=== PATIENT | female | born 1975 | race Caucasian/White ===

== ENCOUNTER 2019-01-27 14:11 | Outpatient (RCR) | payer MEDICARE, MEDICAID, SELFPAY | END 2019-02-08 00:01 | LOC: SPT 14:11 | PROVIDERS: Family Provider Nurse Practitioner Family; Visit Provider General Practice | DX: G89.4 Chronic pain syndrome (principal); R26.9 Unspecified abnormalities of gait and mobility; M51.36 Other intervertebral disc degeneration, lumbar region; Z72.0 Tobacco use; M79.7 Fibromyalgia; F31.9 Bipolar disorder, unspecified; F20.9 Schizophrenia, unspecified; Z79.891 Long term (current) use of opiate analgesic | CPT/HCPCS: 97110 ×2; 97162 ==

== ENCOUNTER 2019-02-09 06:00 | Outpatient (RCR) | payer MEDICARE, MEDICAID, SELFPAY | END 2019-03-11 23:59 | disposition home or self-care (01) | LOC: SPO 06:00 | PROVIDERS: Family Provider Nurse Practitioner Family; PCP Nurse Practitioner Family; Referring Provider General Practice; Visit Provider General Practice | DX: G89.4 Chronic pain syndrome (principal); R26.9 Unspecified abnormalities of gait and mobility; M51.36 Other intervertebral disc degeneration, lumbar region | CPT/HCPCS: 97110 ==

== ENCOUNTER 2019-03-14 06:00 | Outpatient (RCR) | payer MEDICARE, MEDICAID, SELFPAY | END 2019-04-09 23:59 | disposition home or self-care (01) | LOC: SPO 06:00 | PROVIDERS: Family Provider Nurse Practitioner Family; PCP Nurse Practitioner Family; Referring Provider General Practice; Visit Provider General Practice | DX: G89.4 Chronic pain syndrome (principal); R26.9 Unspecified abnormalities of gait and mobility; M51.36 Other intervertebral disc degeneration, lumbar region; M79.7 Fibromyalgia | CPT/HCPCS: 97110 ==

== ENCOUNTER 2019-04-13 14:12 | Outpatient (CLI) | payer MEDICARE, MEDICAID, SELFPAY ==
--- NOTE | 2019-04-13 14:20 | XR_ITS ---
WS: [id number] XR KUB [id number] REASON FOR EXAM: GENERALIZED ABDOMINAL PAIN FINDINGS: Nonspecific gas and fecal stasis throughout the colon are seen. No air-fluid levels to sugg est obstruction. There is no free air in the abdomen seen. The osseous structures are all normal. No definite stones are seen. XR/XR KUB [id number] IMPRESSION: Nonspecific gas and fecal stasis.
== END 2019-04-13 14:13 | disposition home or self-care (01) ==
LOC: RAD 14:18
PROVIDERS: Family Provider Nurse Practitioner Family; PCP Nurse Practitioner Family; Visit Provider Nurse Practitioner Family
DX: R10.84 Generalized abdominal pain (principal)
CPT/HCPCS: 74018

== ENCOUNTER → 2019-05-02 13:20 | Outpatient (BNVA) | payer MEDICARE, MEDICAID, SELFPAY | PROVIDERS: Family Provider Nurse Practitioner Family; PCP Nurse Practitioner Family; Visit Provider Specialist | DX: G43.909 Migraine, unspecified, not intractable, without status migrainosus (principal); F17.210 Nicotine dependence, cigarettes, uncomplicated | CPT/HCPCS: G0463 ==

== ENCOUNTER → 2019-06-29 14:40 | Outpatient (BNVA) | payer MEDICARE, MEDICAID, SELFPAY | PROVIDERS: Family Provider Nurse Practitioner Family; PCP Nurse Practitioner Family; Visit Provider Specialist | DX: G43.909 Migraine, unspecified, not intractable, without status migrainosus (principal); G47.00 Insomnia, unspecified; F17.210 Nicotine dependence, cigarettes, uncomplicated | CPT/HCPCS: 99213 ==

== ENCOUNTER 2019-09-07 12:35 | Outpatient (CLI) | payer MEDICARE, MEDICAID, SELFPAY ==
--- NOTE | 2019-09-07 12:41 | XR_ITS ---
WS: [id number] LUMBAR SPINE: 3 VIEWS TECHNIQUE: AP, lateral and L5-S1 spot. HISTORY: LOW BACK PAIN AT MULTIPLE SITES COMPARISON: None available. Lumbar vertebra are normally aligned. Mild facet joint sclerosis and narrowing at L4-5 and L5-S1. No fracture. No loss of disc space or vertebral body height. SI joints are symmetric bilaterally. No soft tissue abnormalities. XR/XR lumbar spine 2-3V* [id number] IMPRESSION: Mild facet joint arthritis at L4-5 and L5-S1.
--- NOTE | 2019-09-07 12:41 | XR_ITS ---
WS: [id number] CERVICAL SPINE 3 VIEWS HISTORY: NECK PAIN COMPARISON: 01/27/2009 There is an artifact projecting over the RIGHT lateral cervical spine on the AP views. Mild straightening of the normal cervical lordosis. No fractures or disc space narrowing. Lateral mas ses are aligned. The odontoid is intact. Disc spaces and vertebral body heights are well-maintained. Soft tissues are normal. XR/XR cervical spine 3V* [id number] IMPRESSION: Normal cervical spine.
--- NOTE | 2019-09-07 12:41 | XR_ITS ---
WS: [id number] PELVIS AND BILATERAL HIPS TECHNIQUE: AP pelvis and AP and lateral hips. HISTORY: PAIN IN HIP COMPARISON: None available. Pelvis: Bones of the pelvis are symmetric. No soft tissue or bone abnormality. Right hip: No fracture or dislocation. No significant degenerative change. No soft tissue abnormality . Left hip: No fracture or dislocation. No significant degenerative change. No soft tissue abnormality. XR/XR hip BI m 5V wo/w pel* [id number] IMPRESSION: Negative pelvis and bilateral hips.
== END 2019-09-07 12:36 | disposition home or self-care (01) ==
LOC: RAD 12:40
PROVIDERS: Family Provider Nurse Practitioner Family; PCP Nurse Practitioner Family; Visit Provider Nurse Practitioner Family
DX: M54.2 Cervicalgia (principal); M25.551 Pain in right hip; M54.5 Low back pain; M13.88 Other specified arthritis, other site
CPT/HCPCS: 72040; 72100; 73523

== ENCOUNTER → 2019-09-14 08:40 | Outpatient (BNVA) | payer MEDICARE, MEDICAID, SELFPAY | PROVIDERS: Family Provider Nurse Practitioner Family; PCP Nurse Practitioner Family; Referring Provider Nurse Practitioner Family; Visit Provider Specialist | DX: R20.0 Anesthesia of skin (principal); R20.2 Paresthesia of skin; M25.542 Pain in joints of left hand; M25.541 Pain in joints of right hand | CPT/HCPCS: 95910 ==

== ENCOUNTER 2019-09-16 16:02 | Emergency (ER) | payer MEDICARE, MEDICAID, SELFPAY ==
[2019-09-16 16:07] VITALS: BP 223/111; PULSE 117; RESP 17; TEMP 36.7; O2SAT 96; BMI 42.9
--- NOTE | 2019-09-16 16:41 | CTR_ITS ---
PROCEDURE INFORMATION: Exam: CT Abdomen And Pelvis With Contrast Exam date and time: 09/16/2019 4:49 PM Age: 43 years old Clinical indication: Abdominal pain; Generalized; Prior surgery; Surgery date: 6+ months; Surgery type: Hyst; Patient HX: L lower abd pain w nausea and diarrhea TECHNIQUE: Imaging protocol: Computed tomography of the abdomen and pelvis with intravenous contrast. Radiation optimization: All CT scans at this facility use at least one of these dose optimization techniques: automated exposure control; mA and/or kV adjustment per patient size (includes targeted exams where dose is matched to clinical indication); or iterative reconstruction. Contrast material: OMNI 300; Contrast volume: 95 ml; Contrast route: INTRAVENOUS (IV); COMPARISON: CT abdomen pelvis w con* [id number] 02/13/2015 10:43 PM RADIATION DOSE METRICS: Total DLP (mGy-cm): 1878.94 FINDINGS: Lungs: Limited assessment lung bases without visible evidence of active cardiopulmonary process. Liver: Unremarkable. No mass. Gallbladder and bile ducts: Normal. No calcified stones. No ductal dilation. Pancreas: Normal. No ductal dilation. Spleen: Rare splenic calcified granuloma. Spleen otherwise unremarkable. Adrenals: Normal. No mass. Kidneys and ureters: Normal. No hydronephrosis. Stomach and bowel: Nonobstructive bowel pattern. No visible diverticulosis coli or diverticulitis. No visible evidence of significant adynamic or reactive ileus. Appendix: The appendix is visualized appears noninflamed. Intraperitoneal space: No visible intraperitoneal ascites. Vasculature: Unremarkable. No abdominal aortic aneurysm. Lymph nodes: No visible active mesenteric or retroperitoneal lymphadenopathy. Bladder: Urinary bladder decompressed but appears grossly unremarkable. Reproductive: Status post hysterectomy. Bones/joints: No visible active osseous pathology. Soft tissues: Unremarkable. Other findings: Obesity. CT/CT abdomen pelvis w con* [id number] IMPRESSION: Currently no visible evidence of acute abdominal or pelvic pathologic process. Radiation Dose CTDIVOL = (mGy): DLP = 1878.94 (mGy-cm)
--- NOTE | 2019-09-16 16:42 | ED_ITS ---
Documented by User: Jhony Valero DO 09/16/19 18:13 HPI - Abdominal Pain General: Chief Complaint: Abdominal Pain Stated Complaint: abd pain Time Seen by Provider: 09/16/19 16:24 History of Present Illness: HPI narrative: 43-year-old female comes in complaining of abdominal pain diarrhea with nausea. She relates it to an episode where she got overheated a month ago states she never really recovered from that she is tried several [id number] medications Imodium and Pepto- Bismol has had no relief. She is not really had a fever at all she localizes the pain more left lower quadrant she did have a colonoscopy about 2 to 3 years ago was only told about some polyps she said there is no mention that she can recall diverticuli. Unfortunately was done at an outside facility so we do not have easy access to the report from that. She denies any bloody stools or prateek hematochezia she has not had any vomiting with this. She has not noticed any particular triggers or relieving factors. MD elicited complaint: abdominal pain Onset (ago): month(s) (1) Pain Consistency: intermittent Location: LLQ Severity: moderate Quality: cramping Radiation: none Migration to: no migration Exacerbating factors: nothing Relieving factors: nothing Context: history of similar episodes and other (Ongoing for months) Associated Symptoms: Reports change in stool character and GI cramping; Denies change in bowel habits, chills, fever(s), hematochezia, hematuria, hematemesis, fecal incontinence and syncope Review of Systems Const: Denies: fever(s), chills, body aches, fatigue, malaise or night sweats Eyes: Denies: change in vision or blurry vision ENMT: Denies: throat pain, oral sores, dental pain, nasal discharge or nasal congestion Card: Denies: chest pain, palpitations, irregular heart rhythm, edema, syncope, dyspnea on exertion, orthopnea or leg pain with exertion Resp: Denies: dyspnea, productive cough, non-productive cough or wheezing GI: Reports: GI cramping and change in stool character; Denies: hematemesis, fecal incontinence, change in bowel habits or hematochezia : Denies: hematuria Musc: Denies: neck pain, back pain, extremity pain, extremity swelling, joint pain or joint swelling Skin/Breast: Denies: rash, pruritus or erythema Neuro: Denies: headache(s), numbness in extremities, weakness in extremities, sensory changes, lack of coordination, difficulty walking, frequent falls, dizziness, vertigo or confusion Psych: Denies: anxiety, depression, loss of interest, visual hallucinations, auditory hallucinations, suicidal ideation or homicidal ideation Endo: Denies: polyuria, polydipsia, tired all the time or cold intolerance Soren/Lymph: Denies: easy bruising, easy bleeding, petechiae, enlarged lymph nodes or tender lymph nodes PFSH ED PFSH: Family History Sister Psychiatric illness Father Diabetes Psychiatric illness Mother Multiple sclerosis Other Heart disease Social History Smoking and tobacco status: current every day smoker History of recent travel: No Physical Exam Const: COMMON NORMALS: average body habitus, patient oriented x3 and alert GENERAL APPEARANCE: cooperative, comfortable, well kempt and well developed NUTRITIONAL APPEARANCE: obese ORIENTATION/CONSCIOUSNESS: Yes awake, Yes oriented to person and Yes oriented to place HENMT: COMMON NORMALS: normocephalic and atraumatic HEAD & SCALP: normocephalic and atraumatic Eye: COMMON NORMALS: Equal, round and reactive pupils present, EOMs intact bilaterally, conjunctivae normal and no scleral icterus CONJUNCTIVA: Yes conjunctivae normal PUPIL: Yes Equal, round and reactive pupils present Neck/C-Spine: COMMON NORMALS: full ROM, no lymphadenopathy, supple, no meningeal signs and Thyroid normal THYROID: Thyroid normal and asymmetrical Lymph: LYMPHATIC: no lymphadenopathy noted Resp: COMMON NORMALS: normal respiratory effort, No retractions, No use of accessory muscles and clear to auscultation bilaterally AUSCULTATION: clear to auscultation bilaterally Cardio: COMMON NORMALS: regular rate and regular rhythm RATE: regular rate RHYTHM: regular rhythm HEART SOUNDS: no murmurs GI: COMMON NORMALS: Normal to inspection, nondistended, normoactive bowel sounds present, Soft to palpation and No hepatosplenomegaly present PALPATION: Yes Soft to palpation and Yes No hepatosplenomegaly present : COMMON NORMALS: Yes no CVA tenderness BLADDER/KIDNEY EXAM: Yes no CVA tenderness Back/Pelvis: COMMON NORMALS: no CVA tenderness LUMBAR SPINE/LOWER BACK: Yes normal to inspection Extremity: COMMON NORMALS: no clubbing, cyanosis or edema, no calf tenderness and no pedal edema Neuro: COMMON NORMALS: patient oriented x3 SENSORIUM/ORIENTATION: Yes alert, Yes oriented to person and Yes oriented to place MENINGEAL SIGNS: Yes no meningeal signs Psych: APPEARANCE: Yes well kempt Skin: COMMON NORMALS: no rashes or lesions noted and turgor normal GENERAL SKIN EXAM: no rashes or lesions noted and turgor normal Course Vital Signs: Vital signs: Vital Signs Temperature 98.0 F 09/16/19 16:07 Pulse Rate 84 09/16/19 18:42 Respiratory Rate 21 H 09/16/19 18:42 Blood Pressure 191/118 09/16/19 18:42 Pulse Oximetry 99 09/16/19 18:42 MDM - Abdominal Pain MDM Narrative: Medical decision making narrative: Awaiting urine. Patient was given p.o. potassium signed out to Dr. Sales see his note for final diagnosis and disposition. Lab Data: Labs: Lab Results 09/16/19 09/16/19 09/16/19 Range/Units 16:36 16:36 17:42 WBC 11.0 H (4.0-10.0) 10^3/ uL RBC 4.84 (4.1-5.3) 10^6/u L Hgb 14.1 (11.5-15.3) g/dL Hct 42.7 (37.0-47.0) % MCV 88.2 (81-99) fL MCH 29.1 (28.0-34.0) pg MCHC 33.0 (30.0-36.0) g/dL RDW 13.2 (12.1-15.1) % Plt Count 270 (130-400) 10^3/c mm MPV 10.3 (7.4-10.4) fL Neut % (Auto) 76.3 % Lymph % (Auto) 17.5 % [place] % (Auto) 4.6 % Eos % (Auto) 0.9 % Baso % (Auto) 0.4 % Neut # (Auto) 8.43 H (1.8-7.7) 10^3/u L Lymph # (Auto) 1.9 (0.8-4.8) 10^3/u L [place] # (Auto) 0.5 (0.2-0.9) 10^3/u L Eos # (Auto) 0.1 (0.0-0.8) 10^3/u L Baso # (Auto) 0.0 (0.0-0.1) 10^3/u L Nucleated RBC % (a uto) 0 % Nucleated RBCs # 0.0 /100WBC Sodium 140 (136-145) mmol/L Potassium 2.8 L* (3.5-5.1) mmol/L Chloride 105 (98-107) mmol/L Carbon Dioxide 24 (22-29) mmol/L Anion Gap 13.8 (5-19) BUN 10 (6-20) mg/dL Creatinine 0.8 (0.5-0.9) mg/dL GFR Calculation 79.0 L (90-130) mL/min Glucose 153 H (65-115) mg/dL Calculated Osmolal ity 289 (285-295) mOsm/k g Calcium 9.5 (8.5-10.5) mg/dL Total Bilirubin 0.2 (0.15-1.2) mg/dL AST 15 (0-32) U/L ALT 14 (0-33) U/L Alkaline Phosphata se 128 H (35-105) IU/L Total Protein 6.4 L (6.6-8.7) g/dL Albumin 3.9 (3.5-5.2) g/dL Globulin 2.5 (1.3-4.6) g/dL HCG, Qual Negative (Negative) Urine Color (Yellow) Urine Appearance (CLEAR) Urine pH (5-7) Ur Specific Gravit y (1.005-1.030) Urine Protein (Negative) Urine Glucose (UA) (Normal) Urine Ketones (Negative) Urine Blood (Negative) Urine Nitrate (Negative) Urine Bilirubin (NEGATIVE) Urine Urobilinogen (Negative) mg/dL Ur Leukocyte Lilly ase (Negative) 09/16/19 Range/Units 17:42 WBC (4.0-10.0) 10^3/ uL RBC (4.1-5.3) 10^6/u L Hgb (11.5-15.3) g/dL Hct (37.0-47.0) % MCV (81-99) fL MCH (28.0-34.0) pg MCHC (30.0-36.0) g/dL RDW (12.1-15.1) % Plt Count (130-400) 10^3/c mm MPV (7.4-10.4) fL Neut % (Auto) % Lymph % (Auto) % [place] % (Auto) % Eos % (Auto) % Baso % (Auto) % Neut # (Auto) (1.8-7.7) 10^3/u L Lymph # (Auto) (0.8-4.8) 10^3/u L [place] # (Auto) (0.2-0.9) 10^3/u L Eos # (Auto) (0.0-0.8) 10^3/u L Baso # (Auto) (0.0-0.1) 10^3/u L Nucleated RBC % (a uto) % Nucleated RBCs # /100WBC Sodium (136-145) mmol/L Potassium (3.5-5.1) mmol/L Chloride (98-107) mmol/L Carbon Dioxide (22-29) mmol/L Anion Gap (5-19) BUN (6-20) mg/dL Creatinine (0.5-0.9) mg/dL GFR Calculation (90-130) mL/min Glucose (65-115) mg/dL Calculated Osmolal ity (285-295) mOsm/k g Calcium (8.5-10.5) mg/dL Total Bilirubin (0.15-1.2) mg/dL AST (0-32) U/L ALT (0-33) U/L Alkaline Phosphata se (35-105) IU/L Total Protein (6.6-8.7) g/dL Albumin (3.5-5.2) g/dL Globulin (1.3-4.6) g/dL HCG, Qual (Negative) Urine Color Yellow (Yellow) Urine Appearance Clear (CLEAR) Urine pH 5 (5-7) Ur Specific Gravit y 1.000 L (1.005-1.030) Urine Protein Neg (Negative) Urine Glucose (UA) Norm (Normal) Urine Ketones Negative (Negative) Urine Blood Neg (Negative) Urine Nitrate Negative (Negative) Urine Bilirubin Neg (NEGATIVE) Urine Urobilinogen Norm (Negative) mg/dL Ur Leukocyte Lilly ase Negative (Negative) Discharge Plan Discharge Patient Disposition: Home Clinical Impression: Abdominal pain, Acute hypokalemia Condition: Stable Prescriptions: New potassium chloride 20 mEq tablet extended release 20 meq PO BID 5 Days Qty: 10 RF: 0 Zofran 4 mg tablet 4 mg PO Q6H PRN (Reason: nausea and vomiting) Qty: 15 RF: 0 No Action Aimovig Autoinjector 140 mg/mL auto-injector 140 mg SUBCUT .MONTHLY Qty: 1 RF: 6 losartan 50 mg tablet 50 mg PO DAILY RF: 0 tizanidine 4 mg tablet 4 mg PO DAILY RF: 0 estradiol 1 mg tablet 1 mg PO DAILY RF: 0 pravastatin 20 mg tablet 20 mg PO DAILY RF: 0 zaleplon 10 mg capsule 10 mg PO DAILY RF: 0 progesterone micronized 100 mg capsule 100 mg PO DAILY RF: 0 Discharge Orders: Discharge Order (Routine); Ordered 09/16/19 Ordered By: Jhony Valero Referrals: Marilu Sims NP [Primary Care Provider] - Discharge Diet: Clear Liquid Discharge Activity: Increase activity as tolerated Patient Instructions: Cholecystitis (ED), Abdominal Pain (ED) Activity Restrictions/Additional Instructions: Stool samples to be collected and tested. We will call you with results when they become available clear liquid diet for next 24 to 48 hours. Discharge Date/Time: 09/16/19 18:42 Coding Level of Care Code ED Pharmacist'S Aide for Chg Fwd Exam Comprehensive Documented by User: Jose Sales DO 09/16/19 19:08 HPI - Abdominal Pain General: Chief Complaint: Abdominal Pain Stated Complaint: abd pain Time Seen by Provider: 09/16/19 16:24 PFSH ED PFSH: Family History Sister Psychiatric illness Father Diabetes Psychiatric illness Mother Multiple sclerosis Other Heart disease Social History Smoking and tobacco status: current every day smoker History of recent travel: No Course Vital Signs: Vital signs: Vital Signs Temperature 98.0 F 09/16/19 16:07 Pulse Rate 84 09/16/19 18:42 Respiratory Rate 21 H 09/16/19 18:42 Blood Pressure 191/118 09/16/19 18:42 Pulse Oximetry 99 09/16/19 18:42 MDM - Abdominal Pain MDM Narrative: Medical decision making narrative: 43-year-old lady signed out to me originally by Dr. Valero. Her urine resulted before he left, so he ended up discharging her. Her white blood cell count was 11, with a normal CT. No urinary tract infection. She was quite hypokalemic, but repleted here. Lab Data: Labs: Lab Results 09/16/19 09/16/19 09/16/19 Range/Units 16:36 16:36 17:42 WBC 11.0 H (4.0-10.0) 10^3/ uL RBC 4.84 (4.1-5.3) 10^6/u L Hgb 14.1 (11.5-15.3) g/dL Hct 42.7 (37.0-47.0) % MCV 88.2 (81-99) fL MCH 29.1 (28.0-34.0) pg MCHC 33.0 (30.0-36.0) g/dL RDW 13.2 (12.1-15.1) % Plt Count 270 (130-400) 10^3/c mm MPV 10.3 (7.4-10.4) fL Neut % (Auto) 76.3 % Lymph % (Auto) 17.5 % [place] % (Auto) 4.6 % Eos % (Auto) 0.9 % Baso % (Auto) 0.4 % Neut # (Auto) 8.43 H (1.8-7.7) 10^3/u L Lymph # (Auto) 1.9 (0.8-4.8) 10^3/u L [place] # (Auto) 0.5 (0.2-0.9) 10^3/u L Eos # (Auto) 0.1 (0.0-0.8) 10^3/u L Baso # (Auto) 0.0 (0.0-0.1) 10^3/u L Nucleated RBC % (a uto) 0 % Nucleated RBCs # 0.0 /100WBC Sodium 140 (136-145) mmol/L Potassium 2.8 L* (3.5-5.1) mmol/L Chloride 105 (98-107) mmol/L Carbon Dioxide 24 (22-29) mmol/L Anion Gap 13.8 (5-19) BUN 10 (6-20) mg/dL Creatinine 0.8 (0.5-0.9) mg/dL GFR Calculation 79.0 L (90-130) mL/min Glucose 153 H (65-115) mg/dL Calculated Osmolal ity 289 (285-295) mOsm/k g Calcium 9.5 (8.5-10.5) mg/dL Total Bilirubin 0.2 (0.15-1.2) mg/dL AST 15 (0-32) U/L ALT 14 (0-33) U/L Alkaline Phosphata se 128 H (35-105) IU/L Total Protein 6.4 L (6.6-8.7) g/dL Albumin 3.9 (3.5-5.2) g/dL Globulin 2.5 (1.3-4.6) g/dL HCG, Qual Negative (Negative) Urine Color (Yellow) Urine Appearance (CLEAR) Urine pH (5-7) Ur Specific Gravit y (1.005-1.030) Urine Protein (Negative) Urine Glucose (UA) (Normal) Urine Ketones (Negative) Urine Blood (Negative) Urine Nitrate (Negative) Urine Bilirubin (NEGATIVE) Urine Urobilinogen (Negative) mg/dL Ur Leukocyte Lilly ase (Negative) 09/16/19 Range/Units 17:42 WBC (4.0-10.0) 10^3/ uL RBC (4.1-5.3) 10^6/u L Hgb (11.5-15.3) g/dL Hct (37.0-47.0) % MCV (81-99) fL MCH (28.0-34.0) pg MCHC (30.0-36.0) g/dL RDW (12.1-15.1) % Plt Count (130-400) 10^3/c mm MPV (7.4-10.4) fL Neut % (Auto) % Lymph % (Auto) % [place] % (Auto) % Eos % (Auto) % Baso % (Auto) % Neut # (Auto) (1.8-7.7) 10^3/u L Lymph # (Auto) (0.8-4.8) 10^3/u L [place] # (Auto) (0.2-0.9) 10^3/u L Eos # (Auto) (0.0-0.8) 10^3/u L Baso # (Auto) (0.0-0.1) 10^3/u L Nucleated RBC % (a uto) % Nucleated RBCs # /100WBC Sodium (136-145) mmol/L Potassium (3.5-5.1) mmol/L Chloride (98-107) mmol/L Carbon Dioxide (22-29) mmol/L Anion Gap (5-19) BUN (6-20) mg/dL Creatinine (0.5-0.9) mg/dL GFR Calculation (90-130) mL/min Glucose (65-115) mg/dL Calculated Osmolal ity (285-295) mOsm/k g Calcium (8.5-10.5) mg/dL Total Bilirubin (0.15-1.2) mg/dL AST (0-32) U/L ALT (0-33) U/L Alkaline Phosphata se (35-105) IU/L Total Protein (6.6-8.7) g/dL Albumin (3.5-5.2) g/dL Globulin (1.3-4.6) g/dL HCG, Qual (Negative) Urine Color Yellow (Yellow) Urine Appearance Clear (CLEAR) Urine pH 5 (5-7) Ur Specific Gravit y 1.000 L (1.005-1.030) Urine Protein Neg (Negative) Urine Glucose (UA) Norm (Normal) Urine Ketones Negative (Negative) Urine Blood Neg (Negative) Urine Nitrate Negative (Negative) Urine Bilirubin Neg (NEGATIVE) Urine Urobilinogen Norm (Negative) mg/dL Ur Leukocyte Lilly ase Negative (Negative) Discharge Plan Discharge Patient Disposition: Home Clinical Impression: Abdominal pain, Acute hypokalemia Condition: Stable Prescriptions: New potassium chloride 20 mEq tablet extended release 20 meq PO BID 5 Days Qty: 10 RF: 0 Zofran 4 mg tablet 4 mg PO Q6H PRN (Reason: nausea and vomiting) Qty: 15 RF: 0 No Action Aimovig Autoinjector 140 mg/mL auto-injector 140 mg SUBCUT .MONTHLY Qty: 1 RF: 6 losartan 50 mg tablet 50 mg PO DAILY RF: 0 tizanidine 4 mg tablet 4 mg PO DAILY RF: 0 estradiol 1 mg tablet 1 mg PO DAILY RF: 0 pravastatin 20 mg tablet 20 mg PO DAILY RF: 0 zaleplon 10 mg capsule 10 mg PO DAILY RF: 0 progesterone micronized 100 mg capsule 100 mg PO DAILY RF: 0 Discharge Orders: Discharge Order (Routine); Ordered 09/16/19 Ordered By: Jhony Valero Referrals: Marilu Sims NP [Primary Care Provider] - Discharge Diet: Clear Liquid Discharge Activity: Increase activity as tolerated Patient Instructions: Cholecystitis (ED), Abdominal Pain (ED) Activity Restrictions/Additional Instructions: Stool samples to be collected and tested. We will call you with results when they become available clear liquid diet for next 24 to 48 hours. Discharge Date/Time: 09/16/19 18:42 Coding Level of Care Code ED Pharmacist'S Aide for Chg Fwd Exam Comprehensive
[2019-09-16 16:43] LABS: Basophils % 0.4 %; Eosinophils # 0.1 10^3/uL (0.0-0.8); Eosinophils % 0.9 %; Hematocrit 42.7 % (37.0-47.0); Hemoglobin 14.1 g/dL (11.5-15.3); Lymphocytes # 1.9 10^3/uL (0.8-4.8); Lymphocytes % 17.5 %; Mean Corpuscular Hemoglobin 29.1 pg (28.0-34.0); Mean Corpuscular Volume 88.2 fL (81-99); Mean Platelet Volume 10.3 fL (7.4-10.4); Monocytes # 0.5 10^3/uL (0.2-0.9); Monocytes % 4.6 %; Neutrophils # 8.43 10^3/uL (1.8-7.7); Neutrophils % 76.3 %; Nucleated Red Blood Cells % 0 %; Platelet Count 270 10^3/cmm (130-400); Red Blood Count 4.84 10^6/uL (4.1-5.3); Red Cell Distribution Width 13.2 % (12.1-15.1)
[2019-09-16] MEDS: ondansetron 2 mg/ML SDV 2 mL 4 MG IVP (16:43)
[2019-09-16] MEDS: sodium chloride 0.9% 1,000 ML 999 ML IV (16:45)
[2019-09-16 16:47] VITALS: RESP 18; O2SAT 97
[2019-09-16] MEDS: morphine 4 mg/mL SDV 1 mL IVP (16:47)
[2019-09-16 17:00] LABS: Alanine Aminotransferase 14 U/L (0-33); Albumin Level 3.9 g/dL (3.5-5.2); Alkaline Phosphatase 128 IU/L (35-105); Anion Gap 13.8 (5-19); Aspartate Amino Transferase 15 U/L (0-32); Blood Urea Nitrogen 10 mg/dL (6-20); Calcium 9.5 mg/dL (8.5-10.5); Carbon Dioxide 24 mmol/L (22-29); Chloride 105 mmol/L (98-107); Globulin 2.5 g/dL (1.3-4.6); Glucose 153 mg/dL (65-115); Osmolality Calculated 289 mOsm/kg (285-295); Sodium 140 mmol/L (136-145); Total Bilirubin 0.2 mg/dL (0.15-1.2); Total Protein 6.4 g/dL (6.6-8.7)
[2019-09-16] MEDS: iohexol 300 mg/mL 100 mL Btl IV (17:00)
[2019-09-16 17:03] LABS: Potassium 2.8 mmol/L (3.5-5.1)
[2019-09-16 17:11] VITALS: BP 177/118; PULSE 86; RESP 20; O2SAT 97
[2019-09-16] MEDS: potassium chloride oral liq 20 mEq/15 mL UDC 60 MEQ PO (17:22)
[2019-09-16 17:28] VITALS: BP 177/118; PULSE 90; RESP 21; O2SAT 97
[2019-09-16 18:02] LABS: Add Urine Microscopic? NO
[2019-09-16 18:11] VITALS: BP 219/98; PULSE 85; RESP 17; O2SAT 98
[2019-09-16 18:12] LABS: Bilirubin Urine Neg (NEGATIVE); Blood Urine Neg (Negative); Glucose Urine UA Norm (Normal); HCG Qualitative Urine. Negative (Negative); Ketones Urine Negative (Negative); Leukocyte Esterase Urine Negative (Negative); Nitrate Urine Negative (Negative); Protein Urine Neg (Negative); Urine Appearance Clear (CLEAR); Urine Color Yellow (Yellow); Urobilinogen Urine Norm (Negative); pH Urine 5 (5-7)
[2019-09-16 18:42] VITALS: BP 191/118; PULSE 84; RESP 21; O2SAT 99
== END 2019-09-16 18:42 | disposition home or self-care (01) ==
PROVIDERS: Emergency Provider Family Medicine; PCP Nurse Practitioner Family
DX: R10.9 Unspecified abdominal pain (principal); E87.6 Hypokalemia; F17.210 Nicotine dependence, cigarettes, uncomplicated
CPT/HCPCS: 12345; 74177; 80053; 81003; 81025; 85025; 96361; 96374; 96375; 99283; 99284; J2270; J2405; J7030; Q9967

== ENCOUNTER 2019-10-11 06:59 | Outpatient (CLI) | payer MEDICARE, MEDICAID, SELFPAY ==
--- NOTE | 2019-10-11 07:11 | US_ITS ---
WS: [id number] Complete ABDOMINAL ULTRASOUND HISTORY: GENERALIZED ABD PAIN COMPARISON: 12/23/2016 Liver: 15.8 cm in length. Liver is top normal size. All diffuse attenuation related to hepatic steato sis and chronic liver disease. No mass. No bile duct dilatation. Gallbladder: Normally distended with no gallstones, wall thickening or pericholecystic fluid. Gallbladder wall thickness: 0.2 cm. Pancreas: Limited evaluation due to body habitus. CBD: 0.5 cm. Right kidney: 11.3 cm x 5.1 cm x 4.9 cm. No mass, cortical thickening or hydronephrosis. Left kidney: 10.9 cm x 4.9 cm x 4.2 cm. No mass, cortical thickening or hydronephrosis. Spleen: Normal size and echogenicity. Abdominal aorta and IVC are within normal limits. No ascites. US/US abdomen complete* [id number] IMPRESSION: 1. Limited evaluation of the abdominal structures due to body habitus. 2. Negative gallbladder. 3. Mild hepatomegaly and hepatic steatosis.
== END 2019-10-11 07:00 | disposition home or self-care (01) ==
LOC: RAD 07:03
PROVIDERS: PCP Nurse Practitioner Family
DX: R10.84 Generalized abdominal pain (principal); R16.0 Hepatomegaly, not elsewhere classified; K76.0 Fatty (change of) liver, not elsewhere classified
CPT/HCPCS: 76700

== ENCOUNTER 2020-03-28 13:27 | Emergency (ER) | payer MEDICARE, MEDICAID, SELFPAY ==
--- NOTE | 2020-03-28 13:32 | XR_ITS ---
WS: [id number] CHEST 2 VIEWS HISTORY: cough and congestion COMPARISON: 05/26/2018 Lungs: Clear with no abnormality. No pleural effusion or pneumothorax. Cardiac size: Normal. Mediastinum/Aorta: Normal mediastinum. Bones: Normal. XR/XR chest 2V* [id number] IMPRESSION: Normal chest.
[2020-03-28 13:46] VITALS: BP 131/92; PULSE 106; RESP 18; TEMP 36.7; O2SAT 95; BMI 42.9
[2020-03-28 13:50] VITALS: BP 131/92; PULSE 94; RESP 20; O2SAT 93
--- NOTE | 2020-03-28 13:53 | ED_ITS ---
HPI - General Adult General: Chief complaint: General Medical Stated complaint: COUGH, POSS pneumonia Time Seen by Provider: 03/28/20 13:31 Source: patient Mode of arrival: ambulatory Limitations: no limitations History of Present Illness: HPI narrative: 44-year-old female patient presents to the emergency department with 1-week onset of cough congestion, she reports nonproductive cough, denies Covid exposure, she reports recently evaluated by her primary care provider who prescribed an antibiotic, Cefzil, Phenergan DM cough syrup and albuterol 03/21/2019. She states has not improved. She continues to smoke despite cough and congestion. She reports occasional wheezing. She denies nausea vomiting diarrhea. Reports she is afraid she has pneumonia. She denies abdominal pain or other ailments such as night sweats or fever. She denies chest pain or shortness of breath. States came to the ED, because my dad thinks I will get him sick . Onset (ago): day(s) (7) Severity: moderate Relieving factors: none Exacerbating factors: other (talking) Associated symptoms: Reports cough; Deny chest pain, diaphoresis, dyspnea, headache(s), nausea, rash, palpitations or vomiting Treatments prior to arrival: other (Antibiotic, cough syrup prescribed, and albuterol) Review of Systems General: Reports: 10 or more systems reviewed and unremarkable except in HPI and below Const: Denies: fever(s), chills or diaphoresis Eyes: Denies: blurry vision or eye redness ENMT: Denies: throat pain, dental pain or disequilibrium Card: Denies: chest pain, palpitations, irregular heart rhythm or dyspnea on exertion Resp: Reports: non-productive cough, wheezing and chest congestion; Denies: dyspnea, productive cough, pain on inspiration, change in phlegm color or hemoptysis GI: Denies: abdominal pain, nausea or vomiting : Denies: difficulty voiding or dysuria Musc: Denies: neck pain, back pain, joint pain or joint stiffness Skin/Breast: Denies: rash or pruritus Neuro: Denies: headache(s), weakness in extremities or behavioral changes Psych: Denies: anxiety or depression Soren/Lymph: Denies: easy bruising PFS ED PFSH: Family History Sister Psychiatric illness Father Diabetes Psychiatric illness Mother Multiple sclerosis Other Heart disease Social History Smoking and tobacco status: current every day smoker History of recent travel: No Physical Exam Const: COMMON NORMALS: no acute distress, average body habitus, patient oriented x3, healthy appearing, alert and well nourished GENERAL APPEARANCE: cooperative, comfortable, well kempt, well developed and well hydrated; not anxious and not disheveled NUTRITIONAL APPEARANCE: obese ORIENTATION/CONSCIOUSNESS: Yes awake, Yes oriented to person, Yes oriented to place and Yes oriented to time HENMT: COMMON NORMALS: normocephalic, atraumatic, hearing grossly normal bilaterally, external ears normal, Normal external nose present and moist oral mucous membranes HEAD & SCALP: normal to inspection, normocephalic and atraumatic FACE & SINUS: normal facial exam and face symmetric NOSE: Normal external nose present, No nasal polyps present and No nasal discharge present EXTERNAL EAR: Yes external ears normal TYMPANIC MEMBRANE: TM abnormal TM laterality: bilateral dull, erythematous and with loss of landmarks MOUTH: Normal oral and palatal mucosa present and tongue normal THROAT: posterior oropharynx normal and uvula midline Eye: COMMON NORMALS: Equal, round and reactive pupils present and EOMs intact bilaterally GENERAL EYE: appearance normal, both eyes and all related structures PUPIL: Yes Equal, round and reactive pupils present Neck/C-Spine: COMMON NORMALS: full ROM and no lymphadenopathy GENERAL: Yes normal visual inspection and Yes trachea midline CERVICAL SPINE: Yes cervical ROM normal Lymph: LYMPHATIC: no lymphadenopathy noted Chest: COMMONS NORMALS: normal inspection of the chest and normal palpation of entire chest wall Resp: COMMON NORMALS: normal respiratory effort, No retractions and No use of accessory muscles EFFORT & INSPECTION: Yes able to speak in complete sentences, No labored, No retractions and No audible wheezes AUSCULTATION: rhonchi (lungs clear after cough) left upper and right upper Cardio: COMMON NORMALS: regular rate, regular rhythm, S1 normal heart sound present, S2 normal heart sound present and Peripheral pulses 2+ throughout PALPATION: normal PMI (apical pulse 92) RATE: regular rate RHYTHM: regular rhythm HEART SOUNDS: S1 normal heart sound present and S2 normal heart sound present PERIPHERAL PULSES: Peripheral pulses 2+ throughout GI: COMMON NORMALS: Soft to palpation and non-tender INSPECTION: Yes normal to inspection PALPATION: Yes Soft to palpation : COMMON NORMALS: Yes no CVA tenderness BLADDER/KIDNEY EXAM: Yes no CVA tenderness Back/Pelvis: COMMON NORMALS: no CVA tenderness and thoracic and lumbar spine normal to inspection Extremity: COMMON NORMALS: normal to inspection and capillary refill normal Neuro: COMMON NORMALS: patient oriented x3 and no focal motor deficits SENSORIUM/ORIENTATION: Yes alert, Yes oriented to person, Yes oriented to place and Yes oriented to time Psych: COMMON NORMALS: mental status grossly normal, Normal thought process present and cooperative APPEARANCE: Yes well kempt ACTIVITY/MOTOR BEHAVIOR: Yes appropriate eye contact THOUGHT PROCESS: Normal thought process present Skin: COMMON NORMALS: no rashes or lesions noted and turgor normal GENERAL SKIN EXAM: no rashes or lesions noted and turgor normal Course Vital Signs: Vital signs: Vital Signs Temperature 98.1 F 03/28/20 13:46 Pulse Rate 106 H 03/28/20 13:46 Respiratory Rate 18 03/28/20 13:46 Blood Pressure 131/92 03/28/20 13:46 Pulse Oximetry 95 03/28/20 13:46 MDM - General Adult MDM Narrative: Medical decision making narrative: 44-year-old female patient presents to the emergency department with cough congestion x7 days. Oxygen saturation remained 96 to 99% in the ED on room air. Heart rate at rest in the 90s. Denies chest pain, shortness of breath. Reports smoked prior to coming to the ED. Wells criteria for PE score 1.5, low risk, score for tachycardia despite not present at rest. Serology testing not completed secondary to patient's denial of fever, chills or nausea vomiting diarrhea. Patient tested for COVID-19 here in the ED, results will be called to her, prescribed azithromycin and prednisone/Tessalon Perles with instructions to discontinue promethazine DM. Also advised to continue Ventolin HFA inhaler and to stop smoking. Chest x-ray did not reveal pneumonia, no acute abnormalities visualized. Discharge Plan Discharge Patient Disposition: Home Clinical Impression: Suspected 2019 novel coronavirus infection Acute bronchitis Qualifiers: Bronchitis organism: unspecified organism Qualified Code(s): J20.9 - Acute bronchitis, unspecified Condition: Stable Prescriptions: New prednisone 20 mg tablet 20 mg PO BID 5 Days Qty: 10 RF: 0 azithromycin 250 mg tablet See Rx Instructions .ROUTE .COMPLEX Qty: 6 RF: 0 benzonatate 200 mg capsule 200 mg PO TID PRN (Reason: cough) Qty: 20 RF: 0 Discontinued sulfamethoxazole-trimethoprim [Bactrim DS] 800-160 mg tablet 1 tab PO BID 7 Days Qty: 14 RF: 0 valacyclovir 1 gram tablet 1,000 mg PO TID 7 Days Qty: 21 RF: 0 losartan 50 mg tablet 50 mg PO DAILY RF: 0 estradiol 1 mg tablet 1 mg PO DAILY RF: 0 pravastatin 20 mg tablet 20 mg PO DAILY RF: 0 zaleplon 10 mg capsule 10 mg PO DAILY RF: 0 ondansetron HCl [Zofran] 4 mg tablet 4 mg PO Q6H PRN (Reason: nausea and vomiting) Qty: 15 RF: 0 No Action Aimovig Autoinjector 140 mg/mL auto-injector 140 mg SUBCUT .MONTHLY Qty: 1 RF: 2 tizanidine 4 mg tablet 4 mg PO DAILY RF: 0 progesterone micronized 100 mg capsule 100 mg PO DAILY RF: 0 Discharge Orders: Discharge ED (Routine); Ordered 03/28/20 Ordered By: Linda Fontanez Referrals: Marilu Sims, KRISTA [Primary Care Provider] - Discharge Diet: Usual diet Discharge Activity: Limit activity as instructed Patient Instructions: How to Stop Smoking (ED), Acute Bronchitis (ED), Opioid Safety Activity Restrictions/Additional Instructions: Continue antibiotic as prescribed by your primary care x7 days Take azithromycin and prednisone with food to avoid stomach upset COVID-19 results will be called to you, remain at home and quarantine until results are known Return to the emergency department if you develop chest pain, shortness of breath or difficulty breathing/other concerning symptoms If positive results are called, [facility] will contact you with further instructions Push fluids to remain hydrated No work today or tomorrow Stand Alone Forms: Work/School Release Coding Level of Care Code ED Trimming Inspector for Jayce Zelaya Exam Comprehensive
[2020-03-28] MEDS: benzonatate 100 mg Capsule 200 MG PO (14:19)
[2020-03-28 14:33] VITALS: BP 131/92; PULSE 94; RESP 20; TEMP 37.2; O2SAT 98
[2020-04-01 14:56] LABS: Coronavirus Test Green County Not Detected
--- NOTE | 2020-04-01 16:29 | PC.NURSE ---
Patient notified of COVID results at this time.
== END 2020-03-28 14:33 | disposition home or self-care (01) ==
PROVIDERS: Emergency Provider Nurse Practitioner Family; PCP Nurse Practitioner Family
DX: J20.9 Acute bronchitis, unspecified (principal); F17.210 Nicotine dependence, cigarettes, uncomplicated
CPT/HCPCS: 71046; 87635; 99283

== ENCOUNTER → 2020-05-29 07:49 | Outpatient (BNVA) | payer MEDICARE, MEDICAID, SELFPAY | PROVIDERS: PCP Nurse Practitioner Family; Referring Provider Nurse Practitioner Family; Visit Provider Specialist | DX: R20.0 Anesthesia of skin (principal); R20.2 Paresthesia of skin; M79.604 Pain in right leg; F17.210 Nicotine dependence, cigarettes, uncomplicated | CPT/HCPCS: 95908 ==

== ENCOUNTER 2020-06-01 08:19 | Outpatient (CLI) | payer MEDICARE, MEDICAID, SELFPAY ==
--- NOTE | 2020-06-01 08:28 | US_ITS ---
WS: [id number] ULTRASOUND ABDOMEN CLINICAL INFORMATION: PELVIC PAIN COMPARISON: None. FINDINGS: Liver Size: Enlarged Craniocaudal length: 20.5 cm. Echogenicity: Coarse fatty infiltration Surface nodularity: None. Mass (size and location): None. Bile ducts Intrahepatic ducts: Normal. Common bile duct diameter: 0.6 cm. Gallbladder Normal. Gallstones: None. Gallbladder sludge: None. Gallbladder wall thickening: None. Pericholecystic fluid: None. Sonographic Sloan sign: Absent. Pancreas Normal as visualized. Spleen Splenomegaly: None. Craniocaudal length: 9.2 cm. Right kidney: Normal. Hydronephrosis: None. Size: 11.9 cm x 5.1 cm x 3.9 cm Left kidney: Normal. Hydronephrosis: None. Size: 11.0 cm x 5.7 cm x 4.9 cm. Abdominal aorta and IVC Visualized portions are normal. Ascites: None. US/US abdomen complete* [id number] IMPRESSION: 1. Hepatomegaly with diffuse fatty infiltration. 2. Normal gallbladder. Normal common bile duct. 3. No hydronephrosis in either kidney.
--- NOTE | 2020-06-01 08:28 | US_ITS ---
WS: [id number] ULTRASOUND PELVIS TECHNIQUE: Transabdominal. CLINICAL INFORMATION: PELVIC PAIN : No. COMPARISON: None. FINDINGS: Prior hysterectomy Adnexa: No adnexal masses. Ovaries removed. Free fluid: None. Other findings: None. US/US pelvic complete* [id number] IMPRESSION: 1. Prior hysterectomy and oophorectomy. 2. No adnexal masses. 3. No free fluid in the cul-de-sac.
== END 2020-06-01 08:20 | disposition home or self-care (01) ==
PROVIDERS: PCP Nurse Practitioner Family; Visit Provider Nurse Practitioner Family
DX: R10.2 Pelvic and perineal pain (principal); Z90.710 Acquired absence of both cervix and uterus; Z90.722 Acquired absence of ovaries, bilateral
CPT/HCPCS: 76700; 76856

== ENCOUNTER → 2020-06-13 08:36 | Outpatient (BNVA) | payer MEDICARE, MEDICAID, SELFPAY | PROVIDERS: PCP Nurse Practitioner Family; Visit Provider Specialist | DX: G43.709 Chronic migraine without aura, not intractable, without status migrainosus (principal); G25.5 Other chorea; G47.10 Hypersomnia, unspecified; R20.0 Anesthesia of skin; R20.2 Paresthesia of skin; F17.210 Nicotine dependence, cigarettes, uncomplicated; Z03.89 Encounter for observation for other suspected diseases and conditions ruled out | CPT/HCPCS: 36415; 80053; 80306; 84443; 85025; 99214 ==

== ENCOUNTER 2020-06-13 10:06 | Outpatient (CLI) | payer MEDICARE, MEDICAID, SELFPAY ==
[2020-06-13 10:47] LABS: Basophils % 0.5 %; Eosinophils # 0.2 10^3/uL (0.0-0.8); Eosinophils % 1.8 %; Hematocrit 44.2 % (37.0-47.0); Hemoglobin 14.2 g/dL (11.5-15.3); Lymphocytes # 2.4 10^3/uL (0.8-4.8); Lymphocytes % 28.9 %; Mean Corpuscular HGB Conc 32.1 g/dL (30.0-36.0); Mean Corpuscular Hemoglobin 28.7 pg (28.0-34.0); Mean Corpuscular Volume 89.5 fL (81-99); Mean Platelet Volume 11.2 fL (7.4-10.4); Monocytes # 0.5 10^3/uL (0.2-0.9); Neutrophils # 5.09 10^3/uL (1.8-7.7); Neutrophils % 62.6 %; Nucleated Red Blood Cells % 0 %; Platelet Count 224 10^3/cmm (130-400); Red Blood Count 4.94 10^6/uL (4.1-5.3); White Blood Count 8.1 10^3/uL (4.0-10.0)
[2020-06-13 10:58] LABS: Amphetamines Screen Urine Negative (Negative); Barbiturates Screen Urine Negative (Negative); Benzodiazepines Screen Urine Negative (Negative); Cocaine Screen Urine Negative (Negative); Opiate Screen Urine Negative (Negative); PCP Screen Urine Negative (Negative); THC Screen Urine Positive (Negative)
[2020-06-13 11:17] LABS: Alanine Aminotransferase 47 U/L (0-33); Albumin Level 4.2 g/dL (3.5-5.2); Alkaline Phosphatase 142 IU/L (35-105); Anion Gap 11.7 (5-19); Aspartate Amino Transferase 38 U/L (0-32); Blood Urea Nitrogen 11 mg/dL (6-20); Calcium 8.8 mg/dL (8.5-10.5); Carbon Dioxide 28 mmol/L (22-29); Chloride 104 mmol/L (98-107); Globulin 2.9 g/dL (1.3-4.6); Glomerular Filtration Rate 109.6 mL/min (90-130); Glucose 84 mg/dL (65-115); Osmolality Calculated 289 mOsm/kg (285-295); Potassium 3.7 mmol/L (3.5-5.1); Sodium 140 mmol/L (136-145); Thyroid Stimulating Hormone 2.02 uIU/mL (0.27-4.20); Total Bilirubin 0.5 mg/dL (0.15-1.2); Total Protein 7.1 g/dL (6.6-8.7)
== END 2020-06-13 10:07 | disposition home or self-care (01) ==
PROVIDERS: PCP Nurse Practitioner Family; Visit Provider Specialist
DX: G43.709 Chronic migraine without aura, not intractable, without status migrainosus (principal); R20.0 Anesthesia of skin; R20.2 Paresthesia of skin
CPT/HCPCS: 36415; 80053; 80306; 84443; 85025

== ENCOUNTER → 2020-06-20 09:32 | Outpatient (BNVA) | payer MEDICARE, MEDICAID, SELFPAY | PROVIDERS: PCP Nurse Practitioner Family; Visit Provider Nurse Practitioner | DX: F33.2 Major depressive disorder, recurrent severe without psychotic features (principal); F60.3 Borderline personality disorder; F15.21 Other stimulant dependence, in remission; F12.20 Cannabis dependence, uncomplicated; F10.21 Alcohol dependence, in remission | CPT/HCPCS: 99215 ==

== ENCOUNTER 2020-06-25 12:42 | Outpatient (CLI) | payer MEDICARE, MEDICAID, SELFPAY ==
[2020-06-25] MEDS: iohexol 300 mg/mL 50 mL Btl PO (13:58)
[2020-06-25] MEDS: iohexol 300 mg/mL 100 mL Btl IV (14:53)
--- NOTE | 2020-06-25 15:00 | CT_ITS ---
WS: [id number] CT ABDOMEN AND PELVIS WITH CONTRAST HISTORY: R10.9 - Unspecified abdominal pain TECHNIQUE: Imaging performed of the abdomen and pelvis with IV contrast. Single phase imaging of the abdomen. Coronal and sagittal reformats are submitted. All CT scans at [facility] use at least one of these dose optimization techniques: automated exposure control; mA and/or kV adjustment per patient size (includes targeted exams where dose is matched to clinical indication); or iterativ e reconstruction. IV CONTRAST: Omnipaque 300; 95 mL IV. Oral contrast: Yes. DLP: 1162.53 mGy.cm COMPARISON: 09/16/2019 Lower thorax: Lung bases are clear. Heart is normal size. No hiatal hernia. Liver/biliary system: Normal size liver. Fatty sparing along the falciform ligament. Gallbladder: Normal. No gallstones or wall thickening. No pericholecystic fluid. Pancreas: Normal size pancreas and pancreatic duct. No adjacent inflammation. Spleen: Normal size spleen with several granulomata. Adrenal glands: Normal. Right kidney: Normal. Left kidney: Normal. Aorta: Normal. Lymphadenopathy: None. Free fluid: None. GI tract: Unremarkable. Normal appendix. No obstruction or diverticulosis. Abdominal wall: Unremarkable abdominal wall. No hernia. Pelvis: Prior hysterectomy. No pelvic mass. Bones: Unremarkable. CT/CT abdomen pelvis w con* [id number] IMPRESSION: 1. No acute abdominal or pelvic abnormalities. 2. Normal appendix. 3. Prior hysterectomy.
== END 2020-06-25 12:43 | disposition home or self-care (01) ==
LOC: RADWPI 12:45
PROVIDERS: PCP Registered Nurse; Visit Provider Surgery
DX: R10.9 Unspecified abdominal pain (principal); Z90.710 Acquired absence of both cervix and uterus
CPT/HCPCS: 74177; Q9967

== ENCOUNTER 2020-08-02 09:49 | Outpatient (CLI) | payer MEDICARE, MEDICAID, SELFPAY ==
--- NOTE | 2020-08-02 09:54 | MM_ITS ---
WS: [id number] BILATERAL DIGITAL SCREENING MAMMOGRAPHY WITH CAD CLINICAL INFORMATION: SCREENING HISTORY: Screening mammogram. No current complaints. COMPARISON: None. TECHNIQUE: Bilateral CC and MLO views. FINDINGS: History of bilateral breast reduction. Scattered fibroglandular densities bilaterally. Wedge-shaped dense parenchymal tissue outer left jf st only well seen on the cc view adjacent to the chest wall. This most likely represents overlapping parenchymal tissue but is indeterminate. Recommend spot compression views left breast and ultrasound if persistent. A few incidental intramammary lymph nodes. Benign-appearing clustered punctate calcifi cations left breast. Unremarkable right breast. MM/[place] [id number] IMPRESSION: BI-RADS: 0-Incomplete: Need additional imaging evaluation FOLLOW UP: Need Additional Imaging RECOMMEND DIAGNOSTIC MAMMOGRAPHY LEFT BREAST WITH SPOT COMPRESSION VIEWS AND UL TRASOUND IF PERSISTENT.
== END 2020-08-02 09:50 | disposition home or self-care (01) ==
LOC: RADSHAW 09:51
PROVIDERS: PCP Registered Nurse; Visit Provider Registered Nurse
DX: Z12.31 Encounter for screening mammogram for malignant neoplasm of breast (principal)
CPT/HCPCS: 77067

== ENCOUNTER → 2020-08-16 13:12 | Outpatient (BNVA) | payer MEDICARE, MEDICAID, SELFPAY | PROVIDERS: PCP Registered Nurse; Visit Provider Surgery | DX: Z86.010 Personal history of colon polyps (principal) | CPT/HCPCS: 87635 ==

== ENCOUNTER 2020-08-21 07:46 | Outpatient (CLI) | payer MEDICARE, MEDICAID, SELFPAY ==
--- NOTE | 2020-08-21 07:55 | US_ITS ---
WS: [id number] LEFT DIGITAL MAMMOGRAPHY WITH CAD CLINICAL INFORMATION: ABNORMAL MAMMOGRAM LT BREAST COMPARISON: August 02, 2020 TECHNIQUE: 3 views of the left breast were obtained. FINDINGS: Scattered fibroglandular densities of the left breast. Stable wedge-shaped dense parenchyma tissue outer left breast persists on the spot compression views. Ultrasound is pending. ULTRASOUND BREAST LEFT TECHNIQUE: Ultrasound left breast focused area of concern. CLINICAL INFORMATION: ABNORMAL MAMMOGRAM LT BREAST FINDINGS: Ultrasound left breast at the 2:00 position 5 cm from the nipple. Dense underlying parenchymal tissue . Heterogeneous dense parenchymal tissue at the 2:00 position with ductal ectasia. More focal heterog eneous lesion measuring 1.5 x 1.3 x 0.7 cm. This may represent scar tissue from prior breast reductio n or trauma but is nonspecific. Recommend further evaluation with ultrasound-guided biopsy. US/US breast LT limited* [id number] IMPRESSION: BI-RADS: 4-Suspicious Finding-Biopsy Should Be Considered FOLLOW UP: US Guided Biopsy Recommended Recommend ultrasound-guided biopsy left breast lesions described above.
== END 2020-08-21 07:47 | disposition home or self-care (01) ==
LOC: RADSHAW 07:51
PROVIDERS: PCP Registered Nurse; Visit Provider Registered Nurse
DX: R92.8 Other abnormal and inconclusive findings on diagnostic imaging of breast (principal); N63.11 Unspecified lump in the right breast, upper outer quadrant
CPT/HCPCS: 76642; 77065

== ENCOUNTER 2020-08-22 06:00 | Day surgery (SDC) | payer MEDICARE, MEDICAID, SELFPAY ==
[2020-08-17 11:09] VITALS: BMI 40.3
[2020-08-22 06:14] VITALS: PULSE 70; RESP 16; TEMP 36.3; O2SAT 100
[2020-08-22 06:15] VITALS: BP 210/122
[2020-08-22] MEDS: sodium chloride 0.9% 1,000 ML 30 ML IV (06:30)
--- NOTE | 2020-08-22 06:32 | W.PM.OPSUD ---
Surgery/Procedure H&P Update DATE OF PROCEDURE: August 22, 2020 DATE H&P PERFORMED: 07/26/20 H&P UPDATE INFORMATION: I have reviewed H&P completed within last 30 days, I have examined patient prior to procedure and No changes to prior documentation PREOP DIAGNOSIS: abdominal pain PRIMARY INDICATION FOR PROCEDURE: The same PLANNED PROCEDURE: Operation Date: 08/22/20 07:00 Proposed Procedures p EGD/colon [id number] Z86.101 R10.9(Not Applicable) - Karsten Almanza MD s Colonoscopy(Not Applicable) - Karsten Almanza MD
--- NOTE | 2020-08-22 06:55 | ANES.PREANE2 ---
Pre-Anesthetic Assessment Pre-Anesthetic Assessment: Height/Weight: Height 1.63 m Weight 106.594 kg Temp Pulse Resp BP Pulse Ox 97.4 F L 70 16 210/122 100 08/22/20 06:14 08/22/20 06:14 08/22/20 06:14 08/22/20 06:15 08/22/20 06:14 Preop Diagnosis: abdominal pain Proposed Procedure: Operation Date: 08/22/20 07:00 Proposed Procedures p EGD/colon [id number] Z86.101 R10.9(Not Applicable) - Karsten Almanaz MD s Colonoscopy(Not Applicable) - Karsten Almanza MD Was Beta Lonnie taken within 24 hours: N/A Was Clonidine taken within 24 hours: N/A Last intake: Intake Last Liquid Date 08/21/20 Last Liquid Time 00:00 Last Solid Date 08/20/20 Last Solid Time 00:00 Social: Social History: Alcohol (history of abuse, including Meth and THC) and Tobacco Exam: Pre-Anes Outpt Exam: alert, oriented x 3, clear to auscultation bilaterally and regular rate & rhythm Airway: Submandibular: WNL Cervical ROM: WNL MP: 2 History/ROS: No significant history except as noted Pulmonary: Pulmonary: Asthma CV/HEM: CV/HEM: HTN (PCP supposedly took her off lisinopril on last visit; elevated this AM. will have her follow up) : : None reported Hepatic: Hepatic: None reported GI: GI: None reported Metabolic: Metabolic: Morbid obesity Neuropsych: Neuropsych: Anxiety, Bipolar and Depression Anesthetic Plan: ASA status: 3 Anesthesia: Anesthesia Evaluation and MAC Risk of > 500 ml blood loss (7ml/kg in children): No PFSH Anesthesia PFSH: Medical History Alcohol dependence, in remission Amphetamine dependence, in remission Borderline personality disorder Cannabis dependence, episodic use Major depressive disorder, recurrent episode, severe Family History Sister Psychiatric illness Father Diabetes Psychiatric illness Mother Multiple sclerosis Other Heart disease Social History Smoking and tobacco status: current every day smoker cigarettes Alcohol intake: never History of recent travel: No Data Anesthesia Cardiac Studies: No Data to Display
[2020-08-22 07:25] VITALS: BP 116/72; PULSE 74; TEMP 35.8; O2SAT 98
[2020-08-22 07:37] VITALS: BP 119/74; PULSE 76; RESP 18; O2SAT 100
--- NOTE | 2020-08-22 17:04 | ANE.PACU2 ---
Inpatient post-anesthesia follow up: Airway intact: Yes Vital signs: Temperature 96.5 F Pulse Rate 76 Respiratory Rate 18 Blood Pressure 119/74 Pulse Oximetry 100 Oxygen Delivery Me thod Room Air Oxygen Flow Rate Fraction of Inspir ed Oxygen Hydration adequate: Yes Nausea and vomiting: No Pain level: 1 Mental status: Baseline
[2020-08-23 06:12] LABS: H. Pylori / CLO Test Negative
[2020-11-26 14:25] VITALS: BMI 42.9
== END 2020-08-22 07:55 | disposition home or self-care (01) ==
PROVIDERS: PCP Registered Nurse; Visit Provider Surgery
PROC: 0DJD8ZZ Inspection of Lower Intestinal Tract, Via Natural or Artificial Opening Endoscopic (ICD-10-PCS; CPT 45378; 2020-08-22 07:00)
PROC: 0DJ08ZZ Inspection of Upper Intestinal Tract, Via Natural or Artificial Opening Endoscopic (ICD-10-PCS; CPT 43235; 2020-08-22 07:00)
DX: R10.9 Unspecified abdominal pain (principal); Z86.010 Personal history of colon polyps; K21.00 Gastro-esophageal reflux disease with esophagitis, without bleeding; J45.909 Unspecified asthma, uncomplicated; E66.01 Morbid (severe) obesity due to excess calories; Z68.41 Body mass index [BMI] 40.0-44.9, adult; F17.210 Nicotine dependence, cigarettes, uncomplicated
CPT/HCPCS: 43239; 45378; 87077; 96360; J2704; J7030

== ENCOUNTER 2020-08-31 12:47 | Outpatient (CLI) | payer MEDICARE, MEDICAID, SELFPAY ==
--- NOTE | 2020-08-31 | US_ITS ---
WS: [id number] ULTRASOUND-GUIDED LEFT BREAST BIOPSY CLINICAL INFORMATION: ABNORMAL MAMMOGRAM OF LEFT BREAST COMPARISON: None. FINDINGS: The procedure including risks, benefits, and complications were discussed with the patient who agreed to proceed. Using sterile technique patient was prepped and draped in the usual sterile fashion. Aft er 1% lidocaine utilizing real-time ultrasound guidance, the small simple appearing breast cyst at th e 2:00 position was aspirated. Small amount of bloody fluid was obtained. Cyst completely decompresse d. Next, using ultrasound guidance, 5 14-gauge cores were obtained of the left breast lesion at the 2 o' clock position. Subsequently a titanium clip was placed in the biopsy cavity. No immediate complicati ons. Pathology demonstrates A. Breast, left, at 2 o'clock , biopsy: -Benign breast with fibrocystic changes, chronic inflammation and stromal sclerosis. -No malignancy identified. Cytology from aspirate demonstrates benign macrophages with blood and proteinaceous debris. No malign ant cells. US/[id number] IMPRESSION: 1. Uncomplicated ultrasound-guided left breast biopsy. Additional simple cyst aspiration. 2. The pathology demonstrates benign breast tissue with fibrocystic changes. N o malignancy identified. BI-RADS: 2-Benign FOLLOW UP: 1 Year Follow-up RECOMMEND RETURN TO ANNUAL SCREENING MAMMOGRAPHY.
--- NOTE | 2020-08-31 12:58 | US_ITS ---
WS: [id number] ULTRASOUND-GUIDED LEFT BREAST BIOPSY CLINICAL INFORMATION: ABNORMAL MAMMOGRAM OF LEFT BREAST COMPARISON: None. FINDINGS: The procedure including risks, benefits, and complications were discussed with the patient who agreed to proceed. Using sterile technique patient was prepped and draped in the usual sterile fashion. Aft er 1% lidocaine utilizing real-time ultrasound guidance, the small simple appearing breast cyst at th e 2:00 position was aspirated. Small amount of bloody fluid was obtained. Cyst completely decompresse d. Next, using ultrasound guidance, 5 14-gauge cores were obtained of the left breast lesion at the 2 o' clock position. Subsequently a titanium clip was placed in the biopsy cavity. No immediate complicati ons. Pathology demonstrates A. Breast, left, at 2 o'clock , biopsy: -Benign breast with fibrocystic changes, chronic inflammation and stromal sclerosis. -No malignancy identified. Cytology from aspirate demonstrates benign macrophages with blood and proteinaceous debris. No malign ant cells. US/[id number] IMPRESSION: 1. Uncomplicated ultrasound-guided left breast biopsy. Additional simple cyst aspiration. 2. The pathology demonstrates benign breast tissue with fibrocystic changes. N o malignancy identified. BI-RADS: 2-Benign FOLLOW UP: 1 Year Follow-up RECOMMEND RETURN TO ANNUAL SCREENING MAMMOGRAPHY.
== END 2020-08-31 12:48 | disposition home or self-care (01) ==
PROVIDERS: PCP Registered Nurse; Visit Provider Registered Nurse
DX: R92.8 Other abnormal and inconclusive findings on diagnostic imaging of breast (principal)
CPT/HCPCS: 19000; 19083; 76942; 88173; 88305

== ENCOUNTER 2020-10-08 19:20 | Emergency (ER) | payer MEDICARE, MEDICAID, SELFPAY ==
[2020-10-08 19:26] VITALS: BP 162/92; PULSE 86; TEMP 36.8; O2SAT 98; BMI 42.9
--- NOTE | 2020-10-08 20:32 | ED_ITS ---
HPI - Ear Problem General: Chief complaint: Ear Stated complaint: Pain In Left Ear Time Seen by Provider: 10/08/20 19:59 Source: patient Mode of arrival: ambulatory Limitations: no limitations History of Present Illness: HPI Narrative: Patient 45-year-old female states she been having left ear pain over the last 2 days. States the pain is severe in nature and rates an 8 out of 10. States she has been swimming recently. Denies any fever denies any decrease in hearing. Denies any worsening improving factors. Associated symptoms: Reports ear or mastoid pain; Denies fever(s), headache(s) or neck pain Review of Systems Const: Denies: fever(s), chills, body aches or change in appetite Eyes: Denies: blurry vision or eye discomfort ENMT: Reports: ear or mastoid pain Card: Denies: chest pain Resp: Denies: dyspnea GI: Denies: abdominal pain, nausea, vomiting or diarrhea : Denies: dysuria Musc: Denies: neck pain or back pain Skin/Breast: Denies: rash Neuro: Denies: headache(s) Psych: Denies: depression Soren/Lymph: Denies: easy bruising All/Imm: Denies: urticaria PFSH ED PFSH: Medical History Alcohol dependence, in remission Amphetamine dependence, in remission Borderline personality disorder Cannabis dependence, episodic use GERD (gastroesophageal reflux disease) Major depressive disorder, recurrent episode, severe Family History Sister Psychiatric illness Father Diabetes Psychiatric illness Mother Multiple sclerosis Other Heart disease Social History Smoking and tobacco status: current every day smoker cigarettes Alcohol intake: never History of recent travel: No Physical Exam Const: COMMON NORMALS: no acute distress, patient oriented x3 and healthy appearing HENMT: COMMON NORMALS: normocephalic and atraumatic HEAD & SCALP: normocephalic and atraumatic OTHER: Erythema to the left ear canal consistent with otitis externa Eye: COMMON NORMALS: Equal, round and reactive pupils present and EOMs intact bilaterally PUPIL: Yes Equal, round and reactive pupils present Neck/C-Spine: COMMON NORMALS: full ROM and supple Chest: COMMONS NORMALS: normal inspection of the chest and normal palpation of entire chest wall Resp: COMMON NORMALS: normal respiratory effort and No retractions Cardio: COMMON NORMALS: regular rate and No murmurs present (Cardio) RATE: regular rate GI: COMMON NORMALS: Normal to inspection, nondistended, normoactive bowel sounds present, Soft to palpation, non-tender and no masses PALPATION: Yes Soft to palpation Extremity: COMMON NORMALS: normal to inspection and full ROM Neuro: COMMON NORMALS: patient oriented x3, moves all extremities and no focal motor deficits Psych: COMMON NORMALS: mental status grossly normal, Normal thought process present and cooperative THOUGHT PROCESS: Normal thought process present Skin: COMMON NORMALS: no rashes or lesions noted and no wounds GENERAL SKIN EXAM: no rashes or lesions noted Course Vital Signs: Vital signs: Vital Signs Temperature 98.2 F 10/08/20 19:26 Pulse Rate 86 10/08/20 19:26 Respiratory Rate 16 10/08/20 20:36 Blood Pressure 162/92 10/08/20 19:26 Pulse Oximetry 98 10/08/20 19:26 MDM - Ear MDM Narrative: Medical decision making narrative: Patient presents here with otitis externa. She has no signs of malignant otitis externa. We will place him on ofloxacin and she is stable for discharge. She to follow-up PCP and return if worsening. Discharge Plan Discharge Patient Disposition: Home Clinical Impression: Otitis externa Qualifiers: Otitis externa type: unspecified type Chronicity: acute Laterality: left Qualified Code(s): H60.502 - Unspecified acute noninfective otitis externa, left ear Condition: Stable Prescriptions: New ofloxacin 0.3 % drops 10 drp otic (ear) DAILY 7 Days RF: 0 No Action lisinopril 10 mg tablet 10 mg PO DAILY RF: 0 ondansetron HCl [Zofran] 4 mg tablet 4 mg PO Q8H PRN (Reason: Nausea) RF: 0 Emgality Pen 120 mg/mL pen injector 120 mg SUBCUT ONCE Qty: 1 RF: 5 albuterol sulfate 90 mcg/actuation HFA aerosol inhaler 2 puff inhalation Q6H PRN (Reason: Dyspnea) RF: 0 tizanidine 4 mg tablet 4 mg PO DAILY RF: 0 Protonix 40 mg tablet,delayed release (DR/EC) 40 mg PO BIDWM 30 Days Qty: 60 RF: 2 Carafate 1 gram tablet 1 g PO TID 84 Days Qty: 252 RF: 2 Discharge Orders: Discharge ED (Routine); Ordered 10/08/20 Ordered By: Josefina Tao Discharge Diet: Advance as tolerated Discharge Activity: Resume usual activity Patient Instructions: Otitis Externa (ED) Coding Level of Care Code ED Mold Yard Crane Operator for Jayce Zelaya
[2020-10-08] MEDS: HYDROcodone-acetaminophen 5-325 mg Tablet 1 TAB PO (20:34)
[2020-10-08 20:36] VITALS: RESP 16
== END 2020-10-08 20:38 | disposition home or self-care (01) ==
PROVIDERS: Emergency Provider Emergency Medicine
DX: H60.502 Unspecified acute noninfective otitis externa, left ear (principal); F17.210 Nicotine dependence, cigarettes, uncomplicated
CPT/HCPCS: 99282

== ENCOUNTER 2020-10-18 15:35 | Outpatient (CLI) | payer MEDICARE, MEDICAID, SELFPAY ==
--- NOTE | 2020-10-18 | XR_ITS ---
WS: [id number] Bilateral hips, 2 views each, 10/18/2020 Clinical Data: SI JOINT PAIN Comparison: Bilateral hips and pelvis, 09/07/2019. Findings: Right hip: There is a small acetabular lip. No erosion, sclerosis, narrowing or cyst formation of the femoral he ad is seen. The pubic symphysis and right SI joint are unremarkable. There are no fractures or disloc ations. The soft tissues are normal. Left hip: There is a small acetabular lip. No erosion, sclerosis, narrowing of cyst formation of the femoral he ad is seen. The pubic symphysis and left SI joint are unremarkable. The soft tissues are normal. XR/XR hip BI 3-4V wo/w pel [id number] Impression: Minimal bilateral acetabular spurs unchanged.
== END 2020-10-18 15:36 | disposition home or self-care (01) ==
LOC: RAD 15:42
PROVIDERS: PCP Registered Nurse; Visit Provider Registered Nurse
DX: M53.3 Sacrococcygeal disorders, not elsewhere classified (principal); M25.551 Pain in right hip; M25.552 Pain in left hip; G89.29 Other chronic pain
CPT/HCPCS: 73522

== ENCOUNTER 2020-10-30 08:19 | Outpatient (CLI) | payer MEDICARE, MEDICAID, SELFPAY ==
--- NOTE | 2020-10-30 08:38 | MR_ITS ---
WS: [id number] MRI BILATERAL HIPS without CONTRAST. COMPARISON: 07/27/2013 and radiographs 10/18/2020. Multiplanar, multisequence imaging is performed without contrast. History: Chronic bilateral hip pain and multiple falls. No fractures or marrow edema. Lobulated superior acetabular cyst involving the anterior RIGHT acetabu lum has progressed since the prior MRI. There is mild narrowing of both hip joints. There is also mod erate increased T2 signal over the RIGHT greater trochanter. The increased signal has improved since 2014. There is no muscle edema or atrophy. No labral tears are identified but evaluation of the labru m is somewhat limited due to the patient's overall body habitus. There are no joint effusions at the hips. No soft tissue masses. Urinary bladder is well distended. B enign inguinal lymph nodes. MR/MR hips BI wo con [id number] IMPRESSION: 1. Mildly persistent but improved RIGHT trochanteric bursitis versus gluteal i nsertion site tear or tendinitis. 2. RIGHT acetabular subchondral cysts has increased since 2013. 3. No fractures.
== END 2020-10-30 08:20 | disposition home or self-care (01) ==
PROVIDERS: PCP Registered Nurse; Visit Provider Registered Nurse
DX: M25.551 Pain in right hip (principal); M25.552 Pain in left hip; G89.29 Other chronic pain
CPT/HCPCS: 73721

== ENCOUNTER → 2020-11-22 11:50 | Outpatient (BNVA) | payer MEDICARE, MEDICAID, SELFPAY | PROVIDERS: PCP Registered Nurse; Visit Provider Surgery | DX: Z11.52 Encounter for screening for COVID-19 (principal) | CPT/HCPCS: 87635 ==

== ENCOUNTER 2020-11-28 07:47 | Day surgery (SDC) | payer MEDICARE, MEDICAID, SELFPAY ==
--- NOTE | 2020-11-28 08:06 | ANES.PREANE2 ---
Pre-Anesthetic Assessment Pre-Anesthetic Assessment: Height/Weight: Height 1.63 m Preop Diagnosis: Gastric ulcer Proposed Procedure: Operation Date: 11/28/20 09:30 Proposed Procedures p EGD 72246 K25.9(Not Applicable) - Karsten Almanza MD Was Beta Lonnie taken within 24 hours: N/A Was Clonidine taken within 24 hours: N/A Social: Social History: Alcohol and Tobacco Exam: Pre-Anes Outpt Exam: alert, oriented x 3 and regular rate & rhythm Airway: Submandibular: WNL Cervical ROM: WNL MP: 2 Dentition: False Pulmonary: Pulmonary: COPD CV/HEM: CV/HEM: HTN GI: GI: GERD and PUD Metabolic: Metabolic: Morbid obesity Musc/skel: Musc/skel: Lower Back Pain Neuropsych: Neuropsych: Bipolar and Neuropathy Anesthetic Plan: ASA status: 3 Anesthesia: MAC Risk of > 500 ml blood loss (7ml/kg in children): No PFSH Anesthesia PFSH: Medical History Alcohol dependence, in remission Amphetamine dependence, in remission Borderline personality disorder Cannabis dependence, episodic use Gastritis GERD (gastroesophageal reflux disease) Major depressive disorder, recurrent episode, severe Family History Sister Psychiatric illness Father Diabetes Psychiatric illness Mother Multiple sclerosis Other Heart disease Social History Smoking and tobacco status: current every day smoker cigarettes Alcohol intake: never History of recent travel: No Data Anesthesia Cardiac Studies: No Data to Display
[2020-11-28] MEDS: sodium chloride 0.9% 1,000 ML 30 ML IV (08:25)
[2020-11-28 08:26] VITALS: BP 164/134; PULSE 81; RESP 18; TEMP 35.9; O2SAT 100; BMI 42.9
--- NOTE | 2020-11-28 09:19 | W.PM.OPSFHP ---
Same Day Surgery H&P Indication for Procedure/HPI DATE OF PROCEDURE: November 28, 2020 CHIEF COMPLAINT/INDICATIONFOR SURGICAL PROCEDURE: Follow-up endoscopy PREOP DIAGNOSIS: Gastric ulcer PLANNED PROCEDRUE: Operation Date: 11/28/20 09:30 Proposed Procedures p EGD 36591 K25.9(Not Applicable) - Karsten Almanza MD 10/10/2020 Patient comes today status post EGD and was found to have gastritis and acute gastric ulcer, patient was placed on PPI therapy and Carafate and she feels a whole lot better. Colonoscopy was also done because of the patient's history of generalized abdominal pain and that was found to be normal. And she is due for repeat screening colonoscopy in 10 years. Interim history 11/28/2020. Patient comes today for repeat diagnostic EGD to follow on the healing of the acute gastric ulcer ROS All systems have been reviewed negative except as per the above or per problem list. Medications/Allergies* Home Medications Medication Instructions Recorded Confirmed Type tizanidine 4 mg PO DAILY 09/16/19 11/28/20 History albuterol sulfate 90 mcg/actuation 2 puff INHALATION Q6H PRN 06/13/20 11/28/20 History aerosol inhaler lisinopril 10 mg tablet 10 mg PO DAILY 06/13/20 11/28/20 History ondansetron HCl 4 mg tablet 4 mg PO Q8H PRN 06/13/20 11/28/20 History clonazepam [Klonopin] 0.5 mg PO BID 11/28/20 11/28/20 History Allergies/Adverse Reactions Allergy/AdvReac Type Severity Reaction Status Date / Time aripiprazole [From Abilify] Allergy Severe altered Verified 11/28/20 09:20 behavior Penicillins Allergy Severe Swelling/ra Verified 11/28/20 09:20 sh trazodone Allergy Severe night Verified 11/28/20 09:20 terrors sertraline [Zoloft] Allergy Intermediate doesn't Verified 11/28/20 09:20 feel like she can funtion as normal lithium Allergy loss of Verified 11/28/20 09:20 muscle control-frequent falls Current Medications: Generic Name Dose Route Start Last Admin Trade Name Freq PRN Reason Stop Dose Admin Sodium Chloride 1,000 mls @ 30 mls/hr 11/28/20 08:00 11/28/20 08:25 Sodium Chloride 0.9% IV 11/29/20 07:59 30 mls/hr .Q24H KEN Administration Pertinent History/Comorbid Conditions* Medical History (Updated 10/16/20 @ 00:01 by ) Alcohol dependence, in remission Amphetamine dependence, in remission Borderline personality disorder Cannabis dependence, episodic use Gastritis GERD (gastroesophageal reflux disease) Major depressive disorder, recurrent episode, severe Family History (Updated 05/02/19 @ 14:09 by Zayda Burkett LPN) Diabetes Father Heart disease Psychiatric illness Sister Father Multiple sclerosis Mother Social History Smoking and tobacco status: current every day smoker cigarettes Alcohol intake: never History of recent travel: No Pertinent Exam Findings alert, oriented x 3, regular rate & rhythm and procedure specific exam findings (Abdominal examination nontender nondistended soft) Recommendations Surgery/Procedure today (EGD with possible Biopsy) Coding Level of Care Code Acute Marine Engineer Cpvec for Jayce Zelaya
[2020-11-28 09:43] VITALS: BP 113/69; PULSE 78; RESP 18; TEMP 35.8; O2SAT 98
[2020-11-28 09:51] VITALS: BP 136/78; PULSE 77; RESP 18; O2SAT 100
--- NOTE | 2020-11-28 09:59 | ANE.PACU2 ---
Inpatient post-anesthesia follow up: Airway intact: Yes Vital signs: Temperature 96.5 F Pulse Rate 77 Respiratory Rate 18 Blood Pressure 136/78 Pulse Oximetry 100 Oxygen Delivery Me thod Room Air Oxygen Flow Rate Fraction of Inspir ed Oxygen Hydration adequate: Yes Nausea and vomiting: No
== END 2020-11-28 10:07 | disposition home or self-care (01) ==
PROVIDERS: PCP Registered Nurse; Visit Provider Surgery
PROC: 0DJ08ZZ Inspection of Upper Intestinal Tract, Via Natural or Artificial Opening Endoscopic (ICD-10-PCS; CPT 43235; principal; 2020-11-28 09:30)
DX: K25.9 Gastric ulcer, unspecified as acute or chronic, without hemorrhage or perforation (principal); K29.70 Gastritis, unspecified, without bleeding; J44.9 Chronic obstructive pulmonary disease, unspecified; I10 Essential (primary) hypertension; K21.9 Gastro-esophageal reflux disease without esophagitis; Z87.11 Personal history of peptic ulcer disease; E66.01 Morbid (severe) obesity due to excess calories; Z68.41 Body mass index [BMI] 40.0-44.9, adult; F17.210 Nicotine dependence, cigarettes, uncomplicated
CPT/HCPCS: 43239; 88305; 96360; 96361; J7030

== ENCOUNTER → 2020-12-12 08:02 | Outpatient (BNVA) | payer MEDICARE, MEDICAID, SELFPAY | PROVIDERS: PCP Registered Nurse; Visit Provider Specialist | DX: G43.709 Chronic migraine without aura, not intractable, without status migrainosus (principal); E66.01 Morbid (severe) obesity due to excess calories; F17.210 Nicotine dependence, cigarettes, uncomplicated | CPT/HCPCS: 99213 ==

== ENCOUNTER → 2021-01-24 11:37 | Outpatient (BNVA) | payer MEDICARE, MEDICAID, SELFPAY | PROVIDERS: PCP Registered Nurse; Visit Provider Nurse Practitioner | DX: S62.663A Nondisplaced fracture of distal phalanx of left middle finger, initial encounter for closed fracture; W19.XXXA Unspecified fall, initial encounter; S62.654A Nondisplaced fracture of middle phalanx of right ring finger, initial encounter for closed fracture | CPT/HCPCS: 73130 ==

== ENCOUNTER 2021-01-29 14:15 | Outpatient (CLI) | payer MEDICARE, MEDICAID, SELFPAY | END 2021-01-29 14:16 | disposition home or self-care (01) | LOC: SPT 14:16 | PROVIDERS: PCP Registered Nurse; Visit Provider Orthopaedic Surgery | DX: Z46.89 Encounter for fitting and adjustment of other specified devices (principal); S62.654D Nondisplaced fracture of middle phalanx of right ring finger, subsequent encounter for fracture with routine healing; X58.XXXD Exposure to other specified factors, subsequent encounter | CPT/HCPCS: 97760; L3984 ==

== ENCOUNTER 2021-02-06 15:27 | Emergency (ER) | payer MEDICARE, MEDICAID, SELFPAY ==
[2021-02-06 15:36] VITALS: BP 122/58; PULSE 82; RESP 20; TEMP 36.5; O2SAT 98; BMI 42.9
--- NOTE | 2021-02-06 16:14 | XRR_ITS ---
PROCEDURE INFORMATION: Exam: XR Left Foot Exam date and time: 02/06/2021 4:14 PM Age: 45 years old Clinical indication: Injury or trauma; Fall; Sprain or strain; Foot; Left TECHNIQUE: Imaging protocol: XR Left foot. Views: 3 or more views. COMPARISON: No relevant prior studies available. FINDINGS: Bones/joints: Normal. Soft tissues: Dorsal soft tissue swelling. XR/XR foot LT min 3V* 17050 IMPRESSION: No fracture identified.
--- NOTE | 2021-02-06 17:12 | ED_ITS ---
HPI - Extremity Problem General: Chief complaint: Extremity Injury, Lower Stated complaint: L FOOT PAIN Time Seen by Provider: 02/06/21 17:12 History of Present Illness: HPI Narrative: Patient is a 45-year-old female comes to the ED with left foot pain. Patient says approximately 2 weeks ago she stubbed her left foot. She never got her left foot checked out and is continued to have pain. Today she said her pain was worse than usual. Pain gets worse when she bears weight on left foot and she says pain improves when she is resting and elevating it. Pain is located around midfoot. Pain rated 10 out of 10. Associated symptoms: Deny chest pain, fever(s) or rash Review of Systems Const: Denies: fever(s), chills or fatigue Eyes: Denies: change in vision or eye discomfort ENMT: Denies: throat pain, odynophagia, nasal discharge or nasal congestion Card: Denies: chest pain, palpitations, edema, swelling of feet/ankles, dyspnea on exertion or orthopnea Resp: Denies: dyspnea, productive cough or non-productive cough GI: Denies: abdominal pain, nausea, vomiting, diarrhea, constipation or hematochezia : Denies: flank pain, dysuria or hematuria Musc: Reports: extremity pain (left foot); Denies: neck pain, back pain or extremity swelling Skin/Breast: Denies: rash or new lesions Neuro: Denies: headache(s), numbness in extremities or weakness in extremities [facility] ED PFSH: Medical History Alcohol dependence, in remission Amphetamine dependence, in remission Borderline personality disorder Cannabis dependence, episodic use Gastritis GERD (gastroesophageal reflux disease) Major depressive disorder, recurrent episode, severe Family History Sister Psychiatric illness Father Diabetes Psychiatric illness Mother Multiple sclerosis Other Heart disease Social History Alcohol intake: never History of recent travel: No Physical Exam Const: COMMON NORMALS: no acute distress, patient oriented x3 and alert GENERAL APPEARANCE: cooperative and comfortable HENMT: COMMON NORMALS: normocephalic HEAD & SCALP: normocephalic MOUTH: Normal oral and palatal mucosa present THROAT: posterior oropharynx normal and uvula midline Neck/C-Spine: COMMON NORMALS: supple GENERAL: Yes normal visual inspection Resp: COMMON NORMALS: normal respiratory effort, No retractions, No use of accessory muscles and clear to auscultation bilaterally AUSCULTATION: clear to auscultation bilaterally Cardio: COMMON NORMALS: regular rate, regular rhythm, S1 normal heart sound present, S2 normal heart sound present, No gallops present (Cardio), No clicks present (Cardio), No murmurs present (Cardio) and Peripheral pulses 2+ throughout RATE: regular rate RHYTHM: regular rhythm HEART SOUNDS: S1 normal heart sound present and S2 normal heart sound present PERIPHERAL PULSES: Peripheral pulses 2+ throughout GI: COMMON NORMALS: Normal to inspection, nondistended, normoactive bowel sounds present, Soft to palpation, non-tender and no masses PALPATION: Yes Soft to palpation : COMMON NORMALS: Yes no CVA tenderness BLADDER/KIDNEY EXAM: Yes no CVA tenderness Back/Pelvis: COMMON NORMALS: no CVA tenderness Extremity: COMMON NORMALS: normal to inspection NARRATIVE EXTREMITY EXAM: Left foot?no acute exam findings noted. Neuro: COMMON NORMALS: patient oriented x3 and moves all extremities SENSORIUM/ORIENTATION: Yes alert Skin: GENERAL SKIN EXAM: dry skin Course Vital Signs: Vital signs: Vital Signs Temperature 97.7 F 02/06/21 15:36 Pulse Rate 82 02/06/21 15:36 Respiratory Rate 20 H 02/06/21 15:36 Blood Pressure 122/58 02/06/21 15:36 Pulse Oximetry 98 02/06/21 15:36 MDM - Extremity (Nontraumatic) MDM Narrative: Medical decision making narrative: Patient is a 45-year-old f emale comes to the ED with left foot injury. Patient says she stubbed left foot approximately 2 weeks ago and is still having pain. Pain is located around the midfoot region. Vital stable. Exam is benign. X-ray shows no acute fractures or findings. Patient was diagnosed with left foot pain and discharged home with crutches. Told to follow-up with PCP in 7 to 10 days reevaluation. Return to ED precautions given. Patient understood and agree with plan. Imaging Data^: Xray Ortho: Attestation: I personally reviewed and interpreted this imaging study as follows: Radiologist's impression: [facility] [id number] ReportSigned Patient: Opal Orona #: [id number]: 1975Acct#:[id number]/Sex: 45 / FADM Date: 02/06/21Loc: ERRoom/Bed:Attending Dr: Ordering Provider/Ordering MD: Sophia Osborne Date of Service: 02/06/21 Procedure(s): XR foot LT min 3V* [id number] Accession Number(s): [id number] Report Number: [id number] PROCEDURE INFORMATION: Exam: XR Left Foot Exam date and time: 02/06/2021 4:14 PM Age: 45 years old Clinical indication: Injury or trauma; Fall; Sprain or strain; Foot; Left TECHNIQUE: Imaging protocol: XR Left foot. Views: 3 or more views. COMPARISON: No relevant prior studies available. FINDINGS: Bones/joints: Normal. Soft tissues: Dorsal soft tissue swelling. XR/XR foot LT min 3V* 83850 IMPRESSION: No fracture identified. Dictated By:Kasia Michel By:Kasia Michel Date/Time:02/06/21 1703DD/ 1614 Discharge Plan Discharge Patient Disposition: Home Clinical Impression: Foot pain, left Condition: Stable Prescriptions: No Action lisinopril 10 mg tablet 10 mg PO DAILY RF: 0 ondansetron HCl [Zofran] 4 mg tablet 4 mg PO Q8H PRN (Reason: Nausea) RF: 0 hydroxyzine HCl 10 mg tablet 10 mg PO TID PRNRF: 0 temazepam 15 mg capsule PO RF: 0 asenapine maleate 10 mg tablet, sublingual 10 mg sublingual BID RF: 0 simvastatin 10 mg tablet 10 mg PO DAILY RF: 0 bumetanide 1 mg tablet 1 mg PO DAILY RF: 0 buspirone 5 mg tablet 5 mg PO TID RF: 0 Emgality Pen 120 mg/mL pen injector 120 mg SUBCUT ONCE Qty: 1 RF: 11 albuterol sulfate 90 mcg/actuation HFA aerosol inhaler 2 puff inhalation Q6H PRN (Reason: Dyspnea) RF: 0 (DME) Fast form ulnar gutter splint See Rx Instructions .ROUTE .MEDSUPPLY Qty: 1 RF: 0 oxycodone-acetaminophen [Percocet] 5-325 mg tablet 1 tab PO Q4H PRN (Reason: pain) 7 Days Qty: 20 RF: 0 sumatriptan succinate [Imitrex] 100 mg tablet See Rx Instructions PO .COMPLEX Qty: 10 RF: 2 tizanidine 4 mg tablet 4 mg PO DAILY RF: 0 sucralfate [Carafate] 1 gram tablet 1 g PO TID 84 Days Qty: 252 RF: 2 Klonopin 0.5 mg Tablet 0.5 mg PO BID RF: 0 pantoprazole 40 mg tablet,delayed release (DR/EC) 40 mg PO BID Qty: 60 RF: 3 Discharge Orders: Discharge ED (Routine); Ordered 02/06/21 Ordered By: Efrain Burgos Referrals: Jade Salinas [Primary Care Provider] - Discharge Diet: Regular Discharge Activity: Increase activity as tolerated and Use walker/crutches as instructed Activity Restrictions/Additional Instructions: Follow-up with medical provider as directed in 7 to 10 days for reevaluation. Use crutches for the next 2 to 3 days and limit any weightbearing on left foot. None after that you can start weightbearing as tolerated. Rest, ice and elevate left foot as well. Continue taking your previously prescribed pain meds as needed. Return to the ER or your medical provider if condition worsens. Please read and understand discharge instructions. Thank you for choosing [facility] for your healthcare needs today. Please realize this is an emergency room and that we are providing you with a medical screening exam and this may not be complete and all inclusive of all the testing and or work up that you may need to determine your ailment or severity of your illness. It is very important that you follow up as instructed or that you return to the Emergency Department should you have concerns or if your condition changes or worsens in any way. Coding Level of Care Code ED Featherer for Jayce Zelaya Exam Comprehensive
== END 2021-02-06 18:12 | disposition home or self-care (01) ==
PROVIDERS: Emergency Provider Physician Assistant; PCP Registered Nurse
DX: M79.672 Pain in left foot (principal)
CPT/HCPCS: 73630; 99283; E0114

== ENCOUNTER → 2021-02-13 14:18 | Outpatient (BNVA) | payer MEDICARE, MEDICAID, SELFPAY | PROVIDERS: PCP Registered Nurse; Visit Provider Orthopaedic Surgery | DX: S62.604A Fracture of unspecified phalanx of right ring finger, initial encounter for closed fracture (principal); S62.603A Fracture of unspecified phalanx of left middle finger, initial encounter for closed fracture; X58.XXXA Exposure to other specified factors, initial encounter | CPT/HCPCS: 73140 ==

== ENCOUNTER 2021-05-09 10:35 | Outpatient (CLI) | payer MEDICARE, MEDICAID, SELFPAY ==
--- NOTE | 2021-05-09 10:56 | USCV_ITS ---
Opal Orona Age: 45 Gender: F : 1975 Exam Date: 05/09/2021 11:12 Ordering Phys: Jade Salinas Technologist: Exam Location: [facility] [place]_ Indication: rt leg pain PROCEDURES: The venous duplex Doppler examination of both lower extremities was performed in the standard fashion. The following venous structures were evaluated: common femoral vein, profunda vein, proximal portion of the greater saphenous vein, superficial femoral vein, and the popliteal vein. In addition, the posterior tibial and peroneal trunk were evaluated. FINDINGS: Normal 2-D Doppler and augmentation and compressibility throughout the lower extremity venous structures. Additional imaging through the proximal calf veins also reveals no thrombus. Limited evaluation of the greater saphenous vein is patent with no thrombus.. CONCLUSIONS No evidence of right lower extremity DVT. No evidence of left lower extremity DVT. Rashawn Ortega MD (Electronically Signed) Final Date: 09 May 2021 14:53 S
== END 2021-05-09 10:36 | disposition home or self-care (01) ==
PROVIDERS: PCP Registered Nurse; Visit Provider Registered Nurse
DX: I87.8 Other specified disorders of veins (principal)
CPT/HCPCS: 93970

== ENCOUNTER 2021-05-15 05:52 | Outpatient (CLI) | payer MEDICARE, MEDICAID, SELFPAY ==
--- NOTE | 2021-05-15 | USCV_ITS ---
Opal Orona Age: 45 Gender: F : 1975 Exam Date: 05/15/2021 06:16 Ordering Phys: Jade Salinas Technologist: Exam Location: [facility] [place]_ Indication: PAD RIGHT LEFT Brachial 122.00 mmHg Brachial 122.00 mmHg Pressure (mmHg) Waveform Pressure (mmHg) Waveform 130.00 Above Knee 148.00 134.00 Below Knee 144.00 138.00 WIG DRESSER 138.00 118.00 DPA 124.00 0.97 Ankle/Brachial Index 1.06 121.00 Pre-Exercise Toe Pressure 129.00 0.99 Pre-Exercise Toe/Brachial Index 1.06 FINDINGS Normal resting ABIs bilaterally Normal resting TBI bilaterally Normal PVR waveforms bilaterally CONCLUSIONS No evidence of any significant arterial obstruction, based on the above findings. Dr Nancy Lopez MD [facility] (Electronically Signed) Final Date: 15 May 2021 23:04 S
== END 2021-05-15 05:53 | disposition home or self-care (01) ==
LOC: RAD 05:55
PROVIDERS: PCP Registered Nurse; Visit Provider Registered Nurse
DX: I87.2 Venous insufficiency (chronic) (peripheral) (principal); M79.604 Pain in right leg; M79.605 Pain in left leg; I73.9 Peripheral vascular disease, unspecified
CPT/HCPCS: 93923

== ENCOUNTER 2021-06-25 20:44 | Emergency (ER) | payer MEDICARE, MEDICAID, SELFPAY ==
[2021-06-25 20:50] VITALS: BP 186/97; PULSE 112; RESP 24; TEMP 36.8; O2SAT 99; BMI 38.0
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
[2021-06-25] MEDS: HYDROcodone-acetaminophen 5-325 mg Tablet 1 TAB PO (22:14)
[2021-06-25] MEDS: tetracaine 0.5% Op Soln 4 mL Btl 1 DROP EYE-LEFT (22:15)
[2021-06-25] MEDS: fluorescein 1 mg Strip EYE-LEFT (22:15)
[2021-06-25 22:22] VITALS: BP 229/145; PULSE 107; RESP 18; O2SAT 99
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
[2021-06-25] MEDS: neomycin-poly-dex Op 5 mL Btl 2 DROP EYE-LEFT (23:35)
== END 2021-06-25 23:39 | disposition home or self-care (01) ==
PROVIDERS: Emergency Provider Nurse Practitioner Family; PCP Registered Nurse
DX: S05.02XA Injury of conjunctiva and corneal abrasion without foreign body, left eye, initial encounter (principal); S10.91XA Abrasion of unspecified part of neck, initial encounter; S30.810A Abrasion of lower back and pelvis, initial encounter; Y04.0XXA Assault by unarmed brawl or fight, initial encounter
CPT/HCPCS: 70150; 99283

== ENCOUNTER 2022-01-29 10:37 | Outpatient (CLI) | payer MEDICARE, MEDICAID, SELFPAY ==
--- NOTE | 2022-01-29 10:44 | MM_ITS ---
WS: [id number] VIEWS: MLO and CC views both breasts. 3D digital tomosynthesis is also included in this exam. Comparison made with prior exam of . 08/02/2020. Findings: There is a questionable new 8 mm nodule seen in the central left breast at mid depth level almost dir ectly behind the nipple. Compression spot views and regional ultrasound would be suggested for furthe r workup. There are no new suspicious findings in the right breast.Scattered fibroglandular densities . MM/[place] [id number] Impression: BI-RADS: 0-Incomplete: Need additional imaging evaluation FOLLOW-UP: See Report This mammogram was also analyzed by the Computer Aided Detection System R2 Imag e Social Work Assistant.
== END 2022-01-29 10:38 | disposition home or self-care (01) ==
LOC: RAD 10:38
PROVIDERS: PCP Nurse Practitioner Family; Visit Provider Nurse Practitioner Family
DX: Z12.31 Encounter for screening mammogram for malignant neoplasm of breast (principal)
CPT/HCPCS: 77063; 77067

== ENCOUNTER 2022-02-25 08:53 | Outpatient (CLI) | payer MEDICARE, MEDICAID, SELFPAY ==
--- NOTE | 2022-02-25 09:05 | MM_ITS ---
WS: [id number] Left breast diagnostic 3D tomosynthesis digital mammogram, 02/25/2022 Clinical Data: ABNORMAL MAMMO Comparison: 01/29/2022, 08/21/2020, 08/02/2020. Findings: Left breast CC and ML spot images were obtained. An additional left ML view was performed. There is a biopsy clip in the left breast. There are small calcifications in the posterior aspect of the left b reast. The possible central nodule in the left breast is not seen on this examination. This tissue pr obably represents asymmetric breast tissue. The left breast parenchymal pattern shows heterogeneous d ensity. MM/[place] [id number] Impression: 1. No abnormal nodule in central portion of left breast. 2. Biopsy clip and small calcifications which were noted on prior exam have not changed. 3. Recommend return to annual screening mammograms. BIRADS: 2-Benign FOLLOW UP: 1 Year Follow-up The CAD hat checker was used.
== END 2022-02-25 08:54 | disposition home or self-care (01) ==
PROVIDERS: PCP Nurse Practitioner Family; Visit Provider Nurse Practitioner Family
DX: R92.8 Other abnormal and inconclusive findings on diagnostic imaging of breast (principal)
CPT/HCPCS: 77061; G0279

== ENCOUNTER → 2022-03-03 15:15 | Outpatient (BNVA) | payer MEDICARE, MEDICAID, SELFPAY | PROVIDERS: PCP Nurse Practitioner Family; Visit Provider Specialist | DX: G43.711 Chronic migraine without aura, intractable, with status migrainosus (principal); G31.84 Mild cognitive impairment of uncertain or unknown etiology; F33.2 Major depressive disorder, recurrent severe without psychotic features; F60.3 Borderline personality disorder | CPT/HCPCS: 96116; 99214 ==

== ENCOUNTER 2022-04-21 16:31 | Outpatient (CLI) | payer MEDICARE, MEDICAID, SELFPAY ==
--- NOTE | 2022-04-21 17:00 | CT_ITS ---
WS: [id number] CT HEAD TECHNIQUE: Noncontrast CT of the head obtained from the skullbase to the vertex. CLINICAL INFORMATION: concern for pseudotumor cerebri, COMPARISON: None. DLP: 968.[address] scans at [facility] use at least one of these dose optimization techniques: automated e xposure control; mA and/or kV adjustment per patient size (includes targeted exams where dose is matc hed to clinical indication); or iterative reconstruction. FINDINGS: No evidence of intracranial hemorrhage or mass effect. Ventricular system and basal cisterns are aparicio nt. No extra-axial fluid collections. No evidence of mass or mass effect. Normal ornelas-white different iation. Paranasal sinuses and mastoid air cells are well aerated. .Normal visualized soft tissues. CT/CT head wo con* [id number] IMPRESSION: 1. No evidence of intracranial hemorrhage or mass effect. 2. Normal ornelas-white differentiation. 3. No acute intracranial findings and no significant changes since 2018.
== END 2022-04-21 16:32 | disposition home or self-care (01) ==
PROVIDERS: PCP Nurse Practitioner Family; Visit Provider Family Medicine
DX: R29.6 Repeated falls (principal)
CPT/HCPCS: 70450

== ENCOUNTER 2022-05-21 12:17 | Emergency (ER) | payer MEDICARE, MEDICAID, SELFPAY ==
[2022-05-21 13:01] VITALS: BP 126/84; PULSE 66; RESP 16; TEMP 36.7; O2SAT 98; BMI 33.6
--- NOTE | 2022-05-21 13:34 | XR_ITS ---
WS: [id number] EXAMINATION: XR hip RT 2-3V wo/w pel* [id number] REASON FOR EXAM: fall, pain; one view pelvis too please COMPARISON: 10/18/2020 ORDER DATE: 05/21/2022 1:59 PM TECHNIQUE: Frontal internal/external rotation views of the right hip were obtained. X-RAY FINDINGS: There are no fractures or dislocations. Normal motion with internal/external rotation is present. Minor degenerative changes with small superior-lateral acetabular spur. XR/XR hip RT 2-3V wo/w pel* [id number] IMPRESSION: 1. No fractures or dislocations of the right hip. 2. Normal motion with internal/external rotation.
--- NOTE | 2022-05-21 13:34 | CT_ITS ---
WS: [id number] CT LUMBAR SPINE TECHNIQUE: Noncontrast CT of the lumbar spine with coronal and sagittal reformatted images. CLINICAL INFORMATION: fall, pain COMPARISON: MRI 2014 DLP: 886.[address] scans at [facility] use at least one of these dose optimization techniques: automated e xposure control; mA and/or kV adjustment per patient size (includes targeted exams where dose is matc hed to clinical indication); or iterative reconstruction. FINDINGS: Mild lumbar curve. No acute compression. Slight anterolisthesis L4 on L5. L1-L2: Tiny RIGHT pericentral protrusion. Slight narrowing of the RIGHT subarticular recess. Spinal c anal and foramen are patent. L2-L3: Mild facet arthropathy. Spinal canal and foramen are patent. L3-L4: Mild annular bulging. Slight narrowing of the subarticular recess bilaterally. Mild facet arth ropathy. Spinal canal and foramen are patent. L4-L5: Mild annular bulging with mild central canal stenosis. Impingement traversing L5 nerve roots b ilaterally. Suspected RIGHT synovial cyst measuring 9 mm impinges the RIGHT subarticular recess and t raversing RIGHT L5 nerve root. Small bilateral foraminal protrusions with mild bilateral foraminal na rrowing and slight contact of the exiting RIGHT greater than LEFT L4 nerve roots. Moderate facet arth ropathy ligamentum flavum hypertrophy. L5-S1: Mild annular bulging. Slight contact of the traversing S1 nerve roots. Foramen are patent. Mod erate facet arthropathy. Adrenal glands are normal. Visualized pelvic bony structures: Normal. Paravertebral soft tissues: Normal. CT/CT lumbar spine wo con* [id number] IMPRESSION: 1. Mild central canal stenosis L4-L5 due to disc bulging in combination with f acet arthropathy ligamentum flavum hypertrophy. 2. Suspected RIGHT synovial cyst L4-L5 measuring 9 mm impinges the traversing RIGHT L5 nerve root and proximal exiting RIGHT L4 nerve root. Recommend further evaluation with MRI. 3. Small bilateral foraminal protrusions L4-L5 impinges the exiting RIGHT grea ter than LEFT L4 nerve roots. 4. Mild annular bulging L3-L4 with slight effacement of ventral thecal sac. 5. Moderate facet arthropathy L4-L5 and L5-S1. 6. Annular bulging L5-S1 with a tiny shallow central protrusion with slight co ntact of the S1 nerve roots.
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
== END 2022-05-21 14:40 | disposition left against medical advice (07) ==
PROVIDERS: Emergency Provider Physician Assistant; PCP Nurse Practitioner Family
DX: M54.50 Low back pain, unspecified (principal); Z53.21 Procedure and treatment not carried out due to patient leaving prior to being seen by health care provider; F17.210 Nicotine dependence, cigarettes, uncomplicated; Z86.73 Personal history of transient ischemic attack (TIA), and cerebral infarction without residual deficits
CPT/HCPCS: 72131; 73502; 99284

== ENCOUNTER 2022-05-29 16:20 | Outpatient (CLI) | payer MEDICARE, MEDICAID, SELFPAY ==
--- NOTE | 2022-05-29 16:45 | MR_ITS ---
WS: [id number] MRI LUMBAR SPINE WITH CONTRAST TECHNIQUE: Sagittal T1, T2 and STIR imaging. Axial T1 and T2 imaging. Post gadolinium imaging was obt ained. CLINICAL INFORMATION: spinal stenosis CT scan COMPARISON: None. FINDINGS: Mild lumbar curve. No acute compression. Slight anterolisthesis L3 on L4 and L4 on L5. Moderate to ad vanced facet arthropathy L4-L5 with periarticular soft tissue edema and enhancement compatible with s ynovitis. Enhancement extends into the bilateral L4-L5 neural foramen and dorsal epidural space. Basil mmend correlation for infection. Findings compatible with synovitis. Bone marrow edema in the bilater al L4-L5 pedicles RIGHT greater than LEFT with enhancement. Suggestion of trace fluid with epidural t hickening in the dorsal epidural space. No drainable abscess or fluid collection. Additional less pro minent involvement of the L5-S1 facets RIGHT greater than LEFT with enhancement extending into the bi lateral L5-S1 neural foramen. L1-L2: Normal. L2-L3: Normal. L3-L4: Mild annular bulging. Mild facet arthropathy. Small LEFT foraminal protrusion with mild LEFT f oraminal narrowing. RIGHT foramen is patent. L4-L5: Slight anterolisthesis L4 on L5. Mild disc bulging with mild central canal stenosis. Slight im pingement or greater than LEFT traversing L5 nerve roots. Moderate to advanced facet arthropathy with periarticular edema and enhancement compatible with synovitis. Small amount of epidural enhancement with enhancement extending into bilateral neural foramen. Mild RIGHT and no significant LEFT foramina l narrowing. L5-S1: Mild annular bulging. Moderate facet arthropathy. Additional mild edema and periarticular enha ncement involving the RIGHT greater than LEFT L5-S1 facets extending into the bilateral neural forame n. Visualized pelvic bony structures: Normal. Paravertebral soft tissues: Normal. MR/MR lumbar spine wo/w con [id number] IMPRESSION: 1. Moderate to advanced arthropathy L4-L5 with bilateral facet effusions and p rominent periarticular soft tissue enhancement. Prominent enhancement extends i nto the bilateral neural foramen and dorsal epidural space. Minimal trace fluid in the dorsal epidural space. 2. No drainable abscess or drainable fluid collections. Findings compatible wi th synovitis with early epidural involvement. This may be infectious or inflamm atory or less likely degenerative due to instability. Recommend correlation for infectious symptoms and follow-up to resolution. Recommend additional MRI foll ow-up in 2-3 weeks without and with gadolinium. 3. Slight anterolisthesis L4 on L5. Mild disc bulging with mild central canal stenosis. Slight impingement traversing RIGHT greater than LEFT L5 nerve roots. Mild RIGHT foraminal narrowing. 4. No evidence of discitis. 5. Bone marrow edema in the bilateral RIGHT greater than LEFT L4-L5 pedicles w ith enhancement. 6. Additional mild edema and periarticular enhancement involving the RIGHT gre ater than LEFT L5-S1 facets with neural foramen enhancement. 7. Tiny LEFT foraminal protrusion with mild LEFT L3-L4 foraminal narrowing. Notified Jesus Kat MD at 05/30/2022 8:48 AM.
[2022-05-29] MEDS: gadobenate dimeglumine 20 mL vial IV (17:16)
== END 2022-05-29 16:21 | disposition home or self-care (01) ==
LOC: RAD 16:25
PROVIDERS: PCP Family Medicine; Visit Provider Family Medicine
DX: M48.061 Spinal stenosis, lumbar region without neurogenic claudication (principal); M65.9 Synovitis and tenosynovitis, unspecified; M51.17 Intervertebral disc disorders with radiculopathy, lumbosacral region
CPT/HCPCS: 72158; A9577

== ENCOUNTER → 2022-06-03 10:36 | Outpatient (BNVA) | payer MEDICARE, MEDICAID, SELFPAY | PROVIDERS: PCP Family Medicine; Referring Provider Family Medicine; Visit Provider Physician Assistant | DX: M48.061 Spinal stenosis, lumbar region without neurogenic claudication (principal) | CPT/HCPCS: 72110; 99203 ==

== ENCOUNTER → 2022-09-16 08:08 | Outpatient (BNVA) | payer MEDICARE, MEDICAID, SELFPAY | PROVIDERS: PCP Family Medicine; Visit Provider Specialist | DX: G43.711 Chronic migraine without aura, intractable, with status migrainosus; F33.2 Major depressive disorder, recurrent severe without psychotic features; F60.3 Borderline personality disorder | CPT/HCPCS: 96372; 99214; J1885; J2405 ==

== ENCOUNTER 2022-09-25 13:51 | Outpatient (CLI) | payer MEDICARE, MEDICAID, SELFPAY ==
--- NOTE | 2022-09-25 14:05 | XR_ITS ---
WS: [id number] Left hand, 3 views, 09/25/2022 Clinical Data: left thumb pain Comparison: Left hand, 01/24/2021 Findings: No fractures or dislocations are seen. The soft tissues are unremarkable. The joint spaces are normal Impression: Negative left hand.
== END 2022-09-25 13:52 | disposition home or self-care (01) ==
LOC: RAD 13:54
PROVIDERS: PCP Family Medicine; Visit Provider Family Medicine
DX: M79.645 Pain in left finger(s) (principal)
CPT/HCPCS: 73130

== ENCOUNTER 2023-03-12 10:09 | Outpatient (CLI) | payer MEDICARE, MEDICAID, SELFPAY ==
--- NOTE | 2023-03-12 10:13 | XR_ITS ---
WS: [id number] Lumbar spine, 3 views, 03/12/2023 Clinical Data: LUMBAR RADICULOPATHY Comparison: Lumbar spine, 06/03/2022 Findings: There is a posterior lumbar fusion at L4-L5 with bilateral pedicle screws and connecting rods. There is an artificial disc at L4-L5. There is a laminectomy at L4. There are minimal anterior osteophytes of all the lumbar vertebral bodies. No compression fractures or subluxation is seen. Impression: Posterior lumbar fusion at L4-L5.
== END 2023-03-12 10:10 | disposition home or self-care (01) ==
LOC: RAD 10:11
PROVIDERS: PCP Family Medicine; Visit Provider Nurse Practitioner Family
DX: M54.16 Radiculopathy, lumbar region (principal); Z98.1 Arthrodesis status
CPT/HCPCS: 72100

== ENCOUNTER 2023-03-27 11:33 | Outpatient (RCR) | payer MEDICARE, MEDICAID, SELFPAY | END 2023-04-09 23:59 | disposition home or self-care (01) | LOC: SPT 11:33 | PROVIDERS: PCP Family Medicine; Visit Provider Nurse Practitioner Family | DX: M50.90 Cervical disc disorder, unspecified, unspecified cervical region (principal) | CPT/HCPCS: 97162 ==

== ENCOUNTER → 2023-04-08 10:27 | Outpatient (BNVA) | payer MEDICARE, MEDICAID, SELFPAY | PROVIDERS: PCP Family Medicine; Visit Provider Nurse Practitioner Women's Health | DX: R30.0 Dysuria (principal); N89.8 Other specified noninflammatory disorders of vagina | CPT/HCPCS: 84315; 87086; 87491; 87591 ==

== ENCOUNTER 2023-04-10 06:00 | Outpatient (RCR) | payer MEDICARE, MEDICAID, SELFPAY | END 2023-05-10 23:59 | disposition home or self-care (01) | LOC: SPT 06:00 | PROVIDERS: PCP Family Medicine; Visit Provider Nurse Practitioner Family | DX: M50.90 Cervical disc disorder, unspecified, unspecified cervical region; M54.2 Cervicalgia; G43.711 Chronic migraine without aura, intractable, with status migrainosus; R29.90 Unspecified symptoms and signs involving the nervous system; F33.2 Major depressive disorder, recurrent severe without psychotic features; F60.3 Borderline personality disorder | CPT/HCPCS: 99214 ==

== ENCOUNTER 2023-05-05 08:07 | Outpatient (CLI) | payer MEDICARE, MEDICAID, SELFPAY ==
--- NOTE | 2023-05-05 08:54 | MM_ITS ---
WS: [id number] DIAGNOSTIC BILATERAL DIGITAL BREAST TOMOSYNTHESIS MAMMOGRAPHY WITH CAD LEFT breast ultrasound, limited HISTORY: LT BR PAIN COMPARISON: Biopsy LEFT breast 08/31/2020, mammogram 02/25/2022 and 01/29/2022 and 08/21/2020 and 021. TECHNIQUE: Bilateral craniocaudad, mediolateral oblique, and mediolateral views are submitted with to mosynthesis and SM. Spot compression LEFT CC and MLO computer aided detection utilized. Breast composition: There are scattered areas of fibroglandular density. Markers are placed along the anterior LEFT breast in the area of pain. There is no underlying mass identified. Mildly prominent s oft tissue. No distortion or skin thickening. Stable appearance of the asymmetry in the upper outer q uadrant LEFT breast which contains a biopsy clip. LEFT breast ultrasound, limited. Ultrasound is directed to the LEFT breast in the area of pain. Ultrasound from 1-3 o'clock. There is no underlying mass or distortion. Normal appearance of the soft tissues. IMPRESSION: MM/[place] [id number] BI-RADS: 2-Benign FOLLOW UP: 1 Year Follow-up No imaging abnormality in the area of pain as described by the patient.
== END 2023-05-05 08:08 | disposition home or self-care (01) ==
PROVIDERS: PCP Nurse Practitioner Family; Visit Provider Nurse Practitioner Family
DX: N64.4 Mastodynia (principal)
CPT/HCPCS: 76642; 77062; G0279

== ENCOUNTER → 2023-08-11 11:05 | Outpatient (BNVA) | payer MEDICARE, MEDICAID, SELFPAY | PROVIDERS: PCP Nurse Practitioner Family; Visit Provider Specialist | DX: G43.711 Chronic migraine without aura, intractable, with status migrainosus (principal); R29.90 Unspecified symptoms and signs involving the nervous system; F33.2 Major depressive disorder, recurrent severe without psychotic features; F60.3 Borderline personality disorder | CPT/HCPCS: 99213 ==

== ENCOUNTER 2023-08-14 13:56 | Outpatient (CLI) | payer MEDICARE, MEDICAID, SELFPAY | END 2023-08-14 13:57 | disposition home or self-care (01) | LOC: RAD 13:56 | PROVIDERS: PCP Nurse Practitioner Family; Visit Provider Nurse Practitioner Family | DX: R07.89 Other chest pain (principal); R53.83 Other fatigue; R01.1 Cardiac murmur, unspecified | CPT/HCPCS: 93306 ==

== ENCOUNTER 2023-11-27 12:17 | Outpatient (CLI) | payer MEDICARE, MEDICAID, SELFPAY ==
--- NOTE | 2023-11-27 12:21 | CTR_ITS ---
PROCEDURE INFORMATION: Exam: CT Maxillofacial Without Contrast, Sinus Exam date and time: 11/27/2023 12:27 PM Age: 48 years old Clinical indication: Condition or disease; Other: Rhinitis; Additional info: Other allergic rhinitis TECHNIQUE: Imaging protocol: CT Maxillofacial without contrast. Focus on the sinuses. Radiation optimization: All CT scans at this facility use at least one of these dose optimization techniques: automated exposure control; mA and/or kV adjustment per patient size (includes targeted exams where dose is matched to clinical indication); or iterative reconstruction. COMPARISON: CR XR facial bones min 3V* [id number] 06/25/2021 10:44 PM RADIATION DOSE METRICS: Total DLP (mGy-cm): 395.76 FINDINGS: Frontal sinuses: No air-fluid levels. Ethmoid sinuses: No air-fluid levels. Sphenoid sinuses: No air-fluid levels. Maxillary sinuses: No air-fluid levels. Ostiomeatal units are patent. Nasal cavity: Unremarkable. Orbital cavities: Orbits are normal. Globes are unremarkable. Bones: No acute fracture. Edentulous maxilla and mandible. Soft tissues: Unremarkable. CT/CT sinus wo con* [id number] IMPRESSION: No acute sinus disease.
== END 2023-11-27 12:18 | disposition home or self-care (01) ==
LOC: RAD 12:18
PROVIDERS: PCP Nurse Practitioner Family; Visit Provider Specialist
DX: J30.89 Other allergic rhinitis (principal)
CPT/HCPCS: 70486

== ENCOUNTER 2024-01-14 12:46 | Outpatient (CLI) | payer MEDICARE, MEDICAID, SELFPAY ==
--- NOTE | 2024-01-14 12:51 | MR_ITS ---
WS: [id number] MRI RIGHT KNEE HISTORY: ACUTE PAIN OF R KNEE COMPARISON: None available. Anterior cruciate ligament: Intact. Posterior cruciate ligament: Intact. There is fluid adjacent to the PCL which may be a small ganglion . Medial collateral ligament: Intact. Posterior lateral corner structures: Intact. Medial menisci: Mild intrasubstance degeneration of the posterior horn. Anterior horn is normal. Lateral meniscus: Intact. Normal signal, size and shape. Extensor mechanism: Distal quadriceps tendon and patellar tendons are intact. Fluid and soft tissue: Small suprapatellar joint effusion. Fluid extends around the femoral condyles. Small Harrington's cyst. Osseous and articular structures: Patellofemoral compartment: Normal. Fluid and soft tissue thickening anterior to the patella and prox imal patellar tendon. Medial compartment: Minimal narrowing of the medial compartment. No subchondral edema. Minimal frayin g of the cartilage. Lateral compartment: Mild thinning of the lateral compartment. Increased T2 signal in the tibial plat eau is minimal. Mild fraying of the cartilage. No subchondral cystic disease. MR/MR knee RT wo con* [id number] IMPRESSION: 1. Normal ACL. 2. Normal PCL. There is a small amount of fluid adjacent to the PCL which is p robably a ganglion. 3. Small suprapatellar joint effusion. 4. Soft tissue edema anterior to the patella, prepatellar bursitis. 5. No meniscal tear. 6. Very mild narrowing of the medial and lateral compartments with thinning an d fissuring of the cartilage.
== END 2024-01-14 12:47 | disposition home or self-care (01) ==
LOC: RAD 12:48
PROVIDERS: PCP Nurse Practitioner Family; Visit Provider Nurse Practitioner Family
DX: M70.41 Prepatellar bursitis, right knee (principal); M25.461 Effusion, right knee
CPT/HCPCS: 73721

== ENCOUNTER → 2024-02-12 09:36 | Outpatient (BNVA) | payer MEDICARE, MEDICAID, SELFPAY | PROVIDERS: PCP Nurse Practitioner Family; Visit Provider Specialist | DX: G43.711 Chronic migraine without aura, intractable, with status migrainosus (principal); R29.90 Unspecified symptoms and signs involving the nervous system; F33.2 Major depressive disorder, recurrent severe without psychotic features; F60.3 Borderline personality disorder; R03.0 Elevated blood-pressure reading, without diagnosis of hypertension | CPT/HCPCS: 99212 ==

== ENCOUNTER → 2024-08-11 08:52 | Outpatient (BNVA) | payer MEDICARE, MEDICAID, SELFPAY | PROVIDERS: PCP Nurse Practitioner Family; Visit Provider Specialist | DX: G43.711 Chronic migraine without aura, intractable, with status migrainosus (principal); R29.90 Unspecified symptoms and signs involving the nervous system; F33.2 Major depressive disorder, recurrent severe without psychotic features; F60.3 Borderline personality disorder; R03.0 Elevated blood-pressure reading, without diagnosis of hypertension; F17.210 Nicotine dependence, cigarettes, uncomplicated | CPT/HCPCS: 99213 ==